=== PATIENT | female | born 1945 | race Caucasian/White ===

== ENCOUNTER → 2024-01-04 06:32 | Day surgery (SDC) | payer OTHER, SELFPAY | LOC: GI 06:32 | PROVIDERS: ATTENDING PHYSICIAN Internal Medicine Gastroenterology | DX: K62.5 Hemorrhage of anus and rectum (principal); K57.30 Diverticulosis of large intestine without perforation or abscess without bleeding; K64.8 Other hemorrhoids; K51.211 Ulcerative (chronic) proctitis with rectal bleeding; K63.89 Other specified diseases of intestine; R19.4 Change in bowel habit; K62.89 Other specified diseases of anus and rectum; K52.89 Other specified noninfective gastroenteritis and colitis | CPT/HCPCS: 45380; 88305 ==

== ENCOUNTER → 2024-06-23 10:22 | Outpatient (REF) | payer OTHER, SELFPAY | LOC: PAVMRI 10:22 | PROVIDERS: ATTENDING PHYSICIAN Psychiatry & Neurology Neurology; FAMILY PHYSICIAN Nurse Practitioner | DX: R41.89 Other symptoms and signs involving cognitive functions and awareness (principal) | CPT/HCPCS: 70553; A9575 ==

== ENCOUNTER 2024-07-28 12:46 | Emergency (ER) | payer OTHER, SELFPAY ==
[2024-07-28 12:49] VITALS: BP 143/85
[2024-07-28 13:05] LABS: % Basophils 0.7 % (0-2); % Eosinophils 1.8 % (0-6); % Immature Granulocytes 0.1 % (0-0.5); % Lymphocytes 25.1 % (20.5-51.1); % Monocytes 7.8 % (1.7-9.3); % Neutrophils 64.5 % (42.2-75.2); Absolute Basophils 0.1 10^3/uL (0-0.2); Absolute Eosinophils 0.1 10^3/uL (0-0.7); Absolute Lymphocytes 1.7 10^3/uL (1.2-3.4); Absolute Monocytes 0.5 10^3/uL (0.1-0.6); Absolute Neutrophils 4.4 10^3/uL (1.4-6.5); Hematocrit 43.3 % (37.0-47.0); Hemoglobin 14.9 g/dL (12.0-16.0); Mean Corp Hgb Conc. 34.4 g/dL (33.0-37.0); Mean Corpuscular Hgb 31.1 pg (27.0-31.0); Mean Corpuscular Volume 90.4 fL (81.0-99.0); Nucleated Red Blood Cells % 0 %; Platelet Count 239 10^3/uL (130-400); Red Blood Cell Count 4.79 10^6/uL (4.20-5.40); Red Cell Dist. Width 12.9 % (11.5-14.5); White Blood Cell Count 6.8 10^3/uL (4.8-10.8)
[2024-07-28 13:18] LABS: ALT (SGPT) 25 U/L (0-35); AST (SGOT) 27 U/L (14-36); Albumin 4.7 g/dl (3.5-5.0); Alkaline Phosphatase 113 U/L (38-126); Blood Urea Nitrogen 20 mg/dl (7-17); Calcium 9.7 mg/dl (8.4-10.2); Carbon Dioxide 25 mmol/L (22-30); Chloride 102 mmol/L (98-107); Glucose 108 mg/dl (70-99); Lipase 115 U/L (23-300); Potassium 4.2 mmol/L (3.5-5.1); Sodium 139 mmol/L (135-145); Total Bilirubin 1.3 mg/dl (0.2-1.3); Total Protein 7.6 g/dl (6.3-8.2); eGFR > 60.00
--- NOTE | 2024-07-28 13:52 | ED.GENMED ---
History of Present Illness
General
Chief Complaint: Abdominal Symptoms
Source: patient
Time Seen by Provider: 07/28/24 12:50
History of Present Illness
History of Present Illness:
28-year-old female presents to the emergency room for evaluation of intermittent vomiting, difficulty. Patient denies abdominal pain at this time. Symptoms seem to coincide with an increase of her dementia medication. No constipation. Occasional
diarrhea. When patient vomits she brings up 'clear liquid'.
Past History
Past History
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
ED Past Surgical History: Gynecological (Hysterectomy)
Social History
Tobacco: Former smoker
Alcohol: None
Personal:
Living: alone
Phy Exam
Physical Exam
Physical Exam:
General: Awake, Alert, Oriented X3. No acute distress.
Vitals: unremarkable
Head: Atraumatic
Eyes: Pupils equal, EOMI
Throat: Airway intact, no exudates
Neck: Trachea midline
Lungs: Clear and equal b/l
Heart: Regular rate, no murmurs
Abd: Soft, Nontender, No pulsatile mass
Neuro: Nonfocal
Skin: Warm, dry, no rash
Extremities: pulses equal b/l, no edema
Course
Orders/Labs/Results
Orders:
Orders
07/28/24 12:55
Complete Blood Count/With Diff Urgent
Comprehensive Metabolic Panel Urgent
Lipase Urgent
07/28/24 13:51
Obstruct Series W/PA Chest [CR Obstruct Series W/pa Chest] Urgent
Comment:
Reason For Exam: vomiting
07/28/24 13:58
COVID-19 Antigen Urgent
Source: Nasal Swab
Urine Culture Reflexed from UA [Urinalysis Reflex To Culture] Urgent
Date Specimen was Collected: 07/28/24
Time Specimen was Collected: 13:41
Urine Microscopic Reflex Cult Urgent
Urine Culture Urgent
KEYSHA Source: U
Specimen Description:
Date Specimen was Collected: 07/28/24
Time Specimen was Collected: 13:41
07/28/24 15:28
Cephalexin Monohydrate [Keflex] 500 mg PO NOW STA
Abnormal Lab Results
07/28/24 07/28/24
12:55 13:58
MCH 31.1 H pg
(27.0-31.0)
BUN 20 H mg/dl
(7-17)
Glucose 108 H mg/dl
(70-99)
Urine Ketones Trace A
(Negative)
Ur Occult Blood Reflex Trace A
(Negative)
Urine Nitrite (Reflex) Positive A
(Negative)
Leukocyte Esterase Rfl 2+ A
(Negative)
Urine RBC 3-6 A /HPF
(0-2)
Urine WBC (Reflex) 80-90 A /HPF
(0-5)
Urine Bacteria (Reflex) Many A
(Negative)
07/28/24 12:55
07/28/24 12:55
Vital Signs
Initial and Last Documented VS:
Initial Vital Signs
Temp Pulse Resp BP Pulse Ox
97.6 F 60 18 143/85 98
07/28/24 12:49 07/28/24 12:49 07/28/24 12:49 07/28/24 12:49 07/28/24 12:49
Last Documented Vital Signs
Temp Pulse Resp BP Pulse Ox
97.6 F 64 18 140/84 97
07/28/24 12:49 07/28/24 14:54 07/28/24 14:54 07/28/24 14:54 07/28/24 14:54
MDM/Problems Addressed
Differential Diagnosis Includes:
sbo, uti, dysphagia, electrolyte abn
MDM/Problems Addressed:
Patient presents with intermittent gagging and vomiting. She is hemodynamically stable and afebrile. Physical exam is unrevealing. Testing shows evidence of a urinary tract infection. Will cover with cephalexin. Obstruction series shows a
nonspecific gas pattern. Suspect patient will feel better and improve with antibiotics. Follow-up primary care provider in a few days to make sure she is in fact improving.
*Radiology
Radiology exam reviewed: preliminary read by ED provider (Nonspecific gas pattern noted on my review of the patient's obstruction series)
*Pulse Oximetry
Patient hypoxic: no
*Critical Care Note
Total Time (30-74mins, 75-104mins- exclusive of procedures): Not Applicable
ED Attending Note
-
Portions of this chart may have been created with voice recognition software.� Occasional wrong word or��sound alike� substitutions may have occurred due to the inherent limitations of voice recognition software.
Discharge Plan
Departure
Patient Disposition: Home (Routine Discharge)
Date of Disposition: 07/28/24
Time of Disposition: 15:26
Patient with high blood pressure during this ER visit?: Yes
Condition: Good
Discharge Problem:
Acute UTI, Nausea & vomiting
Instructions: Nausea and Vomiting, Adult (DC), Urinary Tract Infection, Adult ED
Prescriptions:
New
cephalexin 500 mg capsule
500 mg PO BID 7 Days Qty: 14 0RF
Referrals:
UNKNOWN - PT DOES,NOT KNOW [Family Provider] -
Interventions
Interventions:
*General Assessment Last Done: 07/28/24 12:49
ED- Fall Risk Assessment Last Done: 07/28/24 12:53
*Nursing Disposition Last Done: 07/28/24 15:35
GS-Jzfxvq-Yqehisyuke Assessment Last Done: 07/28/24 12:53
Discharge Date and Time
Discharge Date/Time: 07/28/24 16:37
Print Language: NIUEAN
[2024-07-28 14:15] LABS: Urine Albumin Negative (Neg - Trace); Urine Bilirubin Negative (Negative); Urine Character Clear (Clear); Urine Color Yellow; Urine Glucose Negative (Negative); Urine Ketone Trace (Negative); Urine Leukocyte 2+ (Negative); Urine Nitrite Positive (Negative); Urine Occult Blood Trace (Negative); Urine Specific Gravity 1.015 (<1.030); Urine Urobilinogen Negative (Neg - 1+)
[2024-07-28 14:39] LABS: Urine Mucus Few; Urine Squamous Cell >30 /LPF (Few)
[2024-07-28 14:41] LABS: Urine Bacteria Many (Negative); Urine White Cell 80-90 /HPF (0-5)
[2024-07-28 14:48] LABS: COVID-19 Antigen Negative (Negative)
[2024-07-28 14:54] VITALS: BP 140/84
[2024-07-28] MEDS: KEFLEX 500 MG PO (16:02)
== END 2024-07-28 16:37 | disposition home or self-care (01) ==
LOC: EMR 12:46
PROVIDERS: EMERGENCY PHYSICIAN Emergency Medicine
DX: N39.0 Urinary tract infection, site not specified (principal); R11.2 Nausea with vomiting, unspecified; Z87.891 Personal history of nicotine dependence; R03.0 Elevated blood-pressure reading, without diagnosis of hypertension; Z11.52 Encounter for screening for COVID-19
CPT/HCPCS: 99284; 74022; 80053; 81003; 81015; 83690; 85025; 87077; 87086; 87186; 87811

== ENCOUNTER 2024-07-31 13:56 | Emergency (ER) | payer OTHER, SELFPAY ==
[2024-07-31 14:02] VITALS: BP 124/76
--- NOTE | 2024-07-31 14:32 | ED.GENMED ---
History of Present Illness
General
Chief Complaint: Abdominal Symptoms
Time Seen by Provider: 07/31/24 14:32
History of Present Illness
History of Present Illness:
TIME OF INITIAL ENCOUNTER: 2:40 PM
HPI: The patient presents with nausea/sensation of needing to vomit. She was here just a few days ago with similar symptoms. Her daughter called the ambulance for further evaluation as symptoms have been ongoing/possibly worsening. Patient feels
there is an anxiety component.
EXAM:
GENERAL: Well appearing in no distress
HEENT: Moist oral mucosa
CARDIOVASCULAR: No murmurs, normal heart rate, regular rhythm, No chest wall tenderness
PULMONARY: No respiratory distress, breath sounds are clear and equal
ABDOMEN: Soft with no peritoneal signs, some mild diffuse abdominal tenderness
NEUROLOGIC: Fair strength all extremities, no coordination deficits
PSYCHIATRIC: Appropriate mental status, somewhat limited insight and judgement
EXTREMITIES: Nontender, no edema, moves all extremities equally
SKIN: No rash, no lesions
NUMBER AND COMPLEXITY OF PROBLEMS ADDRESSED AT THE ENCOUNTER
� Chronic conditions affecting care: Mild cognitive impairment, overactive bladder, ulcerative proctitis, anxiety/depression
� Acute Exacerbation and/or Progression of Chronic Illness: This is an acute problem
� Differential Diagnosis includes: Anxiety, nonspecific nausea, gastroenteritis, bowel obstruction, biliary colic, pancreatitis
AMOUNT AND/OR COMPLEXITY OF DATA TO BE REVIEWED AND ANALYZED
� I performed an independent evaluation of and my interpretation is:
EKG:
CT:
X-rays:
Laboratory Studies: White count normal at 6.2, hemoglobin normal, chemistries unremarkable, urinalysis shows less than 2 white cells per high-power field and overall appears much improved compared to prior. 1+ ketones noted.
Other:
� Review of other/old records: I reviewed records, the patient was seen here 3 days ago and had a normal white count, normal hemoglobin, normal LFTs,, normal lipase and had a abdominal series which was unremarkable.
� Clinical information was obtained by an independent historian: I spoke to the daughter at 3:20 PM. She is concerned about ongoing UTI.
� Prescriptions/Medications Considered but not given: Considered Zofran however the patient states that she no longer has nausea. They declined IV saline.
� Further testing considered but not performed: Considered CT imaging�see below
RISK OF COMPLICATIONS AND/OR MORBIDITY OR MORTALITY OF PATIENT MANAGEMENT
� Social determinants of health affecting care: Lives at home
� Discussion with other providers:
� Escalation of care including admission/observation vs risk of discharge considered: Patient comes back again 3 days after having unremarkable ED workup with unremarkable x-ray. Will obtain CT imaging given patient's age with
ongoing symptoms.
ANY OTHER UPDATES:
3:30 PM: I have asked nurse to obtain a cath urine specimen. Recent records show E. coli. Today's cath urinalysis shows much less concern for UTI. There is ketones noted and she was given IV fluids.
4:24 PM: I reassessed the patient, we had originally planned to do CT imaging however based on the normal labs and near complete resolution of patient's symptoms, daughter wants no further testing done and she wants to just take her home. We talked
about the possibly of Zofran. There is no tenderness on repeat examination prior to discharge
Past History
Past History
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
ED Past Surgical History: Gynecological (Hysterectomy)
Social History
Tobacco: Former smoker
Alcohol: None
Personal:
Living: alone
Phy Exam
Physical Exam
Physical Exam:
See HPI
Course
Orders/Labs/Results
Orders:
Orders
07/31/24 14:54
CT Abd/pelvis W Iv Cont Urgent
Comment:
Reason For Exam: worsening N/V; pain
07/31/24 15:03
Complete Blood Count/With Diff Urgent
07/31/24 15:14
Straight cath- Treatment ONCE
07/31/24 15:20
Comprehensive Metabolic Panel Urgent
Lipase Urgent
UA Reflex to Culture [Urinalysis Reflex To Culture] Urgent
Date Specimen was Collected: 07/31/24
Time Specimen was Collected: 15:13
Urine Microscopic Reflex Cult Urgent
07/31/24 15:34
0.9% Sodium Chloride 1000 ml [Nss] 1,000 ml IV BOLUS
Abnormal Lab Results
07/31/24
15:20
BUN 21 H mg/dl
(7-17)
Glucose 100 H mg/dl
(70-99)
Urine Ketones 1+ A
(Negative)
Ur Occult Blood Reflex Trace A
(Negative)
Leukocyte Esterase Rfl Trace A
(Negative)
Urine Bacteria (Reflex) Few A
(Negative)
07/31/24 15:03
07/31/24 15:20
Vital Signs
Initial and Last Documented VS:
Initial Vital Signs
Temp Pulse Resp BP Pulse Ox
97.8 F 74 16 124/76 99
07/31/24 14:02 07/31/24 14:02 07/31/24 14:02 07/31/24 14:02 07/31/24 14:02
Last Documented Vital Signs
Temp Pulse Resp BP Pulse Ox
97.8 F 74 20 124/76 99
07/31/24 14:02 07/31/24 14:02 07/31/24 15:27 07/31/24 14:02 07/31/24 15:09
*Critical Care Note
Total Time (30-74mins, 75-104mins- exclusive of procedures): Not Applicable
ED Attending Note
-
Portions of this chart may have been created with voice recognition software.� Occasional wrong word or��sound alike� substitutions may have occurred due to the inherent limitations of voice recognition software.
Discharge Plan
Departure
Patient Disposition: Home (Routine Discharge)
Date of Disposition: 07/31/24
Time of Disposition: 16:22
Patient with high blood pressure during this ER visit?: Yes
Discharge Problem:
Nausea
Instructions: Nausea and Vomiting, Adult (DC)
Prescriptions:
No Action
cephalexin 500 mg capsule
500 mg PO BID 7 Days Qty: 14 0RF
Referrals:
UNKNOWN - PT DOES,NOT KNOW [Family Provider] -
Activity Restrictions/Additional Instructions:
The white blood cell count is normal, liver, kidney, pancreas tests are all normal, based on the urinalysis there is no clear sign of urinary tract infection at this time based on the catheterized urine specimen. Return here if worse or other
concerns. Consider taking something ewnv-bkx-[id number] like Pepcid and/or omeprazole to help with stomach acid. Follow with your primary care doctor
Interventions
Interventions:
*Risk Screen - Suicide Last Done: 07/31/24 14:02
*General Assessment Last Done: 07/31/24 14:02
*Neglect/Abuse Screening Last Done: 07/31/24 14:02
ED- Fall Risk Assessment Last Done: 07/31/24 15:09
*ED COVID-19 Vaccine History Last Done: 07/31/24 14:02
FY-Paiokc-Piehftwgzt Assessment Last Done: 07/31/24 14:02
Discharge Date and Time
Print Language: GRENADIAN
[2024-07-31 15:17] LABS: % Basophils 0.7 % (0-2); % Eosinophils 1.8 % (0-6); % Immature Granulocytes 0.2 % (0-0.5); % Lymphocytes 31.7 % (20.5-51.1); % Monocytes 8.3 % (1.7-9.3); % Neutrophils 57.3 % (42.2-75.2); Absolute Eosinophils 0.1 10^3/uL (0-0.7); Absolute Monocytes 0.5 10^3/uL (0.1-0.6); Absolute Neutrophils 3.5 10^3/uL (1.4-6.5); Hematocrit 40.4 % (37.0-47.0); Hemoglobin 13.7 g/dL (12.0-16.0); Mean Corp Hgb Conc. 33.9 g/dL (33.0-37.0); Mean Corpuscular Hgb 30.7 pg (27.0-31.0); Mean Corpuscular Volume 90.6 fL (81.0-99.0); Nucleated Red Blood Cells % 0 %; Platelet Count 215 10^3/uL (130-400); Red Blood Cell Count 4.46 10^6/uL (4.20-5.40); Red Cell Dist. Width 12.9 % (11.5-14.5); White Blood Cell Count 6.2 10^3/uL (4.8-10.8)
[2024-07-31 15:45] LABS: Urine Albumin Trace (Neg - Trace); Urine Bilirubin Negative (Negative); Urine Character Clear (Clear); Urine Color Yellow; Urine Glucose Negative (Negative); Urine Ketone 1+ (Negative); Urine Leukocyte Trace (Negative); Urine Nitrite Negative (Negative); Urine Occult Blood Trace (Negative); Urine Urobilinogen Negative (Neg - 1+)
[2024-07-31 15:52] LABS: Urine Bacteria Few (Negative); Urine Red Blood Cell 0-2 /HPF (0-2); Urine Squamous Cell 0-2 /LPF (Few); Urine White Cell 0-2 /HPF (0-5)
[2024-07-31 15:57] LABS: ALT (SGPT) 22 U/L (0-35); AST (SGOT) 24 U/L (14-36); Albumin 3.9 g/dl (3.5-5.0); Alkaline Phosphatase 90 U/L (38-126); Blood Urea Nitrogen 21 mg/dl (7-17); Calcium 9.3 mg/dl (8.4-10.2); Carbon Dioxide 26 mmol/L (22-30); Chloride 104 mmol/L (98-107); Glucose 100 mg/dl (70-99); Lipase 123 U/L (23-300); Potassium 4.2 mmol/L (3.5-5.1); Sodium 141 mmol/L (135-145); Total Protein 6.6 g/dl (6.3-8.2); eGFR > 60.00
[2024-07-31 16:46] VITALS: BP 119/78
== END 2024-07-31 16:47 | disposition home or self-care (01) ==
LOC: EMR 13:56
PROVIDERS: EMERGENCY PHYSICIAN Emergency Medicine
DX: R11.0 Nausea (principal); F41.9 Anxiety disorder, unspecified; Z86.73 Personal history of transient ischemic attack (TIA), and cerebral infarction without residual deficits; Z87.891 Personal history of nicotine dependence; Z90.710 Acquired absence of both cervix and uterus
CPT/HCPCS: 99283; 80053; 81003; 81015; 83690; 85025

== ENCOUNTER 2024-08-02 11:33 | Emergency (ER) | payer OTHER, SELFPAY ==
[2024-08-02 11:39] VITALS: BP 155/76; BMI 26.5
[2024-08-02 11:59] LABS: % Basophils 0.6 % (0-2); % Eosinophils 1.1 % (0-6); % Immature Granulocytes 0.2 % (0-0.5); % Lymphocytes 27.2 % (20.5-51.1); % Monocytes 6.6 % (1.7-9.3); % Neutrophils 64.3 % (42.2-75.2); Absolute Eosinophils 0.1 10^3/uL (0-0.7); Absolute Lymphocytes 1.7 10^3/uL (1.2-3.4); Absolute Monocytes 0.4 10^3/uL (0.1-0.6); Absolute Neutrophils 4.1 10^3/uL (1.4-6.5); Hematocrit 43.4 % (37.0-47.0); Hemoglobin 14.8 g/dL (12.0-16.0); Mean Corp Hgb Conc. 34.1 g/dL (33.0-37.0); Mean Corpuscular Hgb 31.8 pg (27.0-31.0); Mean Corpuscular Volume 93.1 fL (81.0-99.0); Mean Platelet Volume 10.2 fL (7.4-10.4); Nucleated Red Blood Cells % 0 %; Platelet Count 212 10^3/uL (130-400); Red Blood Cell Count 4.66 10^6/uL (4.20-5.40); Red Cell Dist. Width 12.8 % (11.5-14.5); White Blood Cell Count 6.4 10^3/uL (4.8-10.8)
[2024-08-02 12:00] VITALS: BP 103/68
[2024-08-02 12:06] VITALS: BP 163/83
[2024-08-02 12:06] LABS: Urine Albumin Trace (Neg - Trace); Urine Bilirubin Negative (Negative); Urine Character Clear (Clear); Urine Color Yellow; Urine Glucose Negative (Negative); Urine Ketone 1+ (Negative); Urine Leukocyte Negative (Negative); Urine Nitrite Negative (Negative); Urine Occult Blood Negative (Negative); Urine Specific Gravity 1.015 (<1.030); Urine Urobilinogen Negative (Neg - 1+)
[2024-08-02 12:14] LABS: ALT (SGPT) 22 U/L (0-35); AST (SGOT) 24 U/L (14-36); Albumin 4.3 g/dl (3.5-5.0); Alkaline Phosphatase 99 U/L (38-126); Blood Urea Nitrogen 19 mg/dl (7-17); Calcium 9.6 mg/dl (8.4-10.2); Carbon Dioxide 26 mmol/L (22-30); Chloride 103 mmol/L (98-107); Estimated Creatinine Clearance 53 ml/min; Glucose 126 mg/dl (70-99); Sodium 139 mmol/L (135-145); Total Protein 7.2 g/dl (6.3-8.2); eGFR > 60.00
--- NOTE | 2024-08-02 12:32 | ED.GENMED ---
History of Present Illness
General
Chief Complaint: Weakness
Source: patient and family (daughter at bedside, aunt in [place] on speaker phone)
Exam Limitations: dementia
Time Seen by Provider: 08/02/24 11:54
Nursing documentation reviewed up to this point in time: agreed with
History of Present Illness
History of Present Illness:
79 yo female here for 3rd time in past week for weakness, not eating, questionable whether she is taking her medications properly, nausea and retching in the mornings.
Daughter called EMS after speaking with pt this a.m..
Pt states 'I think I have some kind of dementia.' Pt denies H/A, vision changes, CP, SOB, Abd pain, states she's nauseous only in the mornings, family think she tries to take all her medications in the morning on empty stomach causing the gagging
and nausea. Denies burning with urination, wears depends and a pad, does have urgency but this is not new. Denies f/c/d/c.
Pt states 'I have depression and real high anxiety.'
Daughter Tammy at bedside states 'she can't go home.' She lives alone in her home.
Past History
Past History
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
ED Past Surgical History: Gynecological (Hysterectomy)
Social History
Tobacco: Former smoker
Alcohol: None
Personal:
Living: alone
Review of Systems
Review of Systems
Allergies reviewed?: Yes
All Other Systems: ROS reviewed and negative except as documented in HPI and ROS
Constitutional: Reports fatigue; Denies fever
Respiratory: Denies trouble breathing
Cardiac: Denies chest pain or syncope
ABD/GI: Reports nausea, vomiting and anorexia; Denies abdominal pain or diarrhea
: Reports incontinence and urgency; Denies dysuria, frequency or difficulty voiding
Musculoskeletal: Reports no symptoms
Skin: Reports no symptoms
Neurological: Reports no symptoms
Psychiatric: Reports depression and anxiety
Phy Exam
Physical Exam
Physical Exam:
GENERAL: No acute distress. A&Ox3.
CONSTITUTIONAL: Afebrile.
EYES: PERRL, conjunctivae normal
Neck: Supple
ENMT: moist mucus membranes, Pharynx nl
RESPIRATORY: Regular respirations, nonlabored, lungs clear.
CARDIOVASCULAR: Regular rate and rhythm, no murmurs, no rubs.
GI: Soft, nontender, normal BS
MUSCULOSKELETAL: Moves with ease. Well perfused.
SKIN: Warm, dry, pink
PSYCH: Depressed mood and affect. Well kept, interactive and appropriate
NEUROLOGIC: Awake, alert and oriented. CN 2-12 intact. Strength equal throughout. No focal neurological deficits. Ambulates independently, mildly unstable.
Course
Orders/Labs/Results
Orders:
Orders
08/02/24 11:37
Electrocardiogram (*1) Urgent
Reason for Study: Fatigue / Weakness
EKG- Treatment ONCE
08/02/24 11:51
Complete Blood Count/With Diff Urgent
Comprehensive Metabolic Panel Urgent
Urinalysis Reflex To Culture Urgent
Date Specimen was Collected: 08/02/24
Time Specimen was Collected: 11:50
Abnormal Lab Results
08/02/24
11:51
MCH 31.8 H pg
(27.0-31.0)
BUN 19 H mg/dl
(7-17)
Glucose 126 H mg/dl
(70-99)
Urine Ketones 1+ A
(Negative)
08/02/24 11:51
08/02/24 11:51
Vital Signs
Initial and Last Documented VS:
Initial Vital Signs
Temp Pulse Resp BP Pulse Ox
97.6 F 66 16 155/76 98
08/02/24 11:39 08/02/24 11:39 08/02/24 11:39 08/02/24 11:39 08/02/24 11:39
Last Documented Vital Signs
Temp Pulse Resp BP Pulse Ox
97.6 F 56 18 131/58 93
08/02/24 11:39 08/02/24 13:00 08/02/24 13:00 08/02/24 13:00 08/02/24 13:00
MDM/Problems Addressed
Differential Diagnosis Includes:
dementia, depression/anxiety
MDM/Problems Addressed:
79 yo female here for 3rd time in past week for weakness, not eating, questionable whether she is taking her medications properly, nausea and retching in the mornings.
Daughter called EMS after speaking with pt this a.m..
Pt states 'I think I have some kind of dementia.' Pt denies H/A, vision changes, CP, SOB, Abd pain, states she's nauseous only in the mornings, family think she tries to take all her medications in the morning on empty stomach causing the gagging
and nausea. Denies burning with urination, wears depends and a pad, does have urgency but this is not new. Denies f/c/d/c.
Pt states 'I have depression and real high anxiety.'
Daughter Tammy at bedside states 'she can't go home.' She lives alone in her home.
CBC, CMP, UA unremarkable
Pt OOB and ambulating independently, mildly tremulous but not unstable.
Patient is cleared medically
Case management in to speak with daughter and aunt on speaker phone. All agree that she cannot go home, her grandson lives with her part of the time but most of the time there is no one there with her.
Case management is working on getting home health care starting in 2 days (Sunday) until the family can find a place with higher level of care for patient. Case management provided the family with a list of places they can call Sunday
Daughter states pt can stay with her until then.
*Critical Care Note
Total Time (30-74mins, 75-104mins- exclusive of procedures): Not Applicable
ED Attending Note
-
Portions of this chart may have been created with voice recognition software.� Occasional wrong word or��sound alike� substitutions may have occurred due to the inherent limitations of voice recognition software.
Discharge Plan
Departure
Patient Disposition: Home (Routine Discharge)
Date of Disposition: 08/02/24
Time of Disposition: 12:40
Patient with high blood pressure during this ER visit?: No
Condition: Fair
Discharge Problem:
Dementia, Anxiety, Depression
Instructions: Depression in adults, Dementia ED
Prescriptions:
New
ondansetron 4 mg tablet,disintegrating
4 mg PO Q8H PRN (Reason: nausea and vomiting) 5 Days Qty: 14 0RF
No Action
cephalexin 500 mg capsule
500 mg PO BID 7 Days Qty: 14 0RF
atorvastatin [Lipitor] 40 mg Tablet
40 mg PO QPM
oxybutynin chloride 10 mg Tablet Extended Release 24hr
10 mg PO DAILY
aspirin 81 mg Tablet,Delayed Release (Dr/Ec)
81 mg PO DAILY
buspirone 10 mg Tablet
10 mg PO BID
escitalopram oxalate [Lexapro] 20 mg Tablet
20 mg PO DAILY
valsartan 40 mg Tablet
40 mg PO DAILY
donepezil 23 mg Tablet
23 mg PO HS
Activity Restrictions/Additional Instructions:
As we discussed, have Ms. Newberry stay with someone this weekend, [facility] is arranging some type of home care for next week.
She is providing a list of facilities you can call to make admission or longer term care arrangements.
Her lab work including urinalysis show nothing worrisome.
I sent a prescription to your pharmacy for Zofran to use if needed for nausea/vomiting.
Make appointment SAWYER with her new primary care provider to be sure she can get her medications refilled when needed.
Interventions
Interventions:
*Risk Screen - Suicide Last Done: 08/02/24 11:39
*General Assessment Last Done: 08/02/24 11:39
*Neglect/Abuse Screening Last Done: 08/02/24 11:39
ED- Fall Risk Assessment Last Done: 08/02/24 11:39
*ED COVID-19 Vaccine History Last Done: 08/02/24 11:39
*Nursing Disposition Last Done: 08/02/24 13:48
ED- Cardiac Assessment Last Done: 08/02/24 11:39
ED- Neurological Assessment Last Done: 08/02/24 11:39
ED- Pulmonary Assessment Last Done: 08/02/24 11:39
Discharge Date and Time
Discharge Date/Time: 08/02/24 13:48
Print Language: POLISH
--- NOTE | 2024-08-02 12:59 | PHANOTE ---
med rec note- patient daughter brought in patient drug bottles, most a duplicates and full, unable to confirm with either daughter or patient when medication where taking last
[2024-08-02 13:00] VITALS: BP 131/58
--- NOTE | 2024-08-02 13:25 | CM ---
CM consult for PC facilities for patient. Daughter explained mom has not been taking her meds the way she should. She also said she was looking into getting her mom to a community center so she could socialize more. DIESEL TECH[employer]OLOGY INSTRUCTOR also in room. While daughter
explained what symptoms were, DIESEL TECHNOLOGY INSTRUCTOR educated daughter that these were signs of depression, as they had discussed.
CM reiterated that it sounded like patient was going through depression, and the socialization would help. CM also educated daughter on how important it was that her mother received her depression pill each day.
Daughter had her aunt on speaker phone as well. The aunt shared that she did not feel that it was safe for Becca Caro to be living in her home any more, and she may need to 'never return back'. CM explained what Personal Care was. Patient's daughter
and daughter's aunt were in agreement of this.
CM printed out a list of PCs/AL facilites in the area and handed it to daughter. Referrals to [facility] and [facility].
== END 2024-08-02 13:48 | disposition home or self-care (01) ==
LOC: EMR 11:33
PROVIDERS: Student in an Organized Health Care Education/Training Program; EMERGENCY PHYSICIAN Emergency Medicine; FAMILY PHYSICIAN Family Medicine
DX: F03.90 Unspecified dementia, unspecified severity, without behavioral disturbance, psychotic disturbance, mood disturbance, and anxiety (principal); F41.9 Anxiety disorder, unspecified; F32.A Depression, unspecified; Z86.73 Personal history of transient ischemic attack (TIA), and cerebral infarction without residual deficits; Z87.891 Personal history of nicotine dependence; Z79.899 Other long term (current) drug therapy
CPT/HCPCS: 99284; 80053; 81003; 85025; 93005

== ENCOUNTER 2024-08-06 12:14 | Inpatient (IN) | payer OTHER, SELFPAY ==
[2024-08-04 17:23] VITALS: BP 111/70
[2024-08-04 17:30] VITALS: BMI 25.4
[2024-08-04 17:47] LABS: % Basophils 0.6 % (0-2); % Eosinophils 0.6 % (0-6); % Immature Granulocytes 0.2 % (0-0.5); % Lymphocytes 17.2 % (20.5-51.1); % Monocytes 5.3 % (1.7-9.3); % Neutrophils 76.1 % (42.2-75.2); Absolute Basophils 0.1 10^3/uL (0-0.2); Absolute Eosinophils 0.1 10^3/uL (0-0.7); Absolute Lymphocytes 1.4 10^3/uL (1.2-3.4); Absolute Monocytes 0.4 10^3/uL (0.1-0.6); Absolute Neutrophils 6.1 10^3/uL (1.4-6.5); Hematocrit 40.8 % (37.0-47.0); Hemoglobin 13.8 g/dL (12.0-16.0); Mean Corp Hgb Conc. 33.8 g/dL (33.0-37.0); Mean Corpuscular Volume 91.7 fL (81.0-99.0); Nucleated Red Blood Cells % 0 %; Platelet Count 199 10^3/uL (130-400); Red Blood Cell Count 4.45 10^6/uL (4.20-5.40); Red Cell Dist. Width 12.9 % (11.5-14.5); White Blood Cell Count 8.1 10^3/uL (4.8-10.8)
--- NOTE | 2024-08-04 17:49 | ED.GENMED ---
History of Present Illness
General
Chief Complaint: Seizure
Time Seen by Provider: 08/04/24 17:49
History of Present Illness
History of Present Illness:
TIME OF INITIAL ENCOUNTER: 5:50 PM
HPI:
The patient was seen here in the Emergency Department 07/28/2024 and was felt to have a urinary tract infection�was placed on Keflex and at that time also had an obstruction series which was unremarkable. I saw this patient 07/31/2024 and had nausea
and at that time had unremarkable CBC and chemistries and urinalysis was much improved. Urine culture from 07/28/2024 was pansensitive. The patient was seen in the emergency department 08/02/2024 related to weakness and not eating and was also
complaining of nausea in the mornings as well as sensation of depression. Care management was working on getting home health care. I spoke to the daughter at 6:25 PM he tells me that earlier today around 4:30 PM, the grandson found her
unresponsive shake. Daughter states that she had an episode of seizure activity about 15 years ago but since then was taken off of seizure medications.
EXAM:
GENERAL: Well appearing in no distress
HEENT: Moist oral mucosa
CARDIOVASCULAR: No murmurs, normal heart rate, regular rhythm, No chest wall tenderness
PULMONARY: No respiratory distress, breath sounds are clear and equal
ABDOMEN: Soft with no peritoneal signs, no tenderness
NEUROLOGIC: Excellent strength all extremities, no coordination deficits
PSYCHIATRIC: Mild cognitive deficits but she is able to name the month, knows where she is and has a general idea as to why she is here
EXTREMITIES: Nontender, no edema, moves all extremities equally
SKIN: No rash, no lesions
NUMBER AND COMPLEXITY OF PROBLEMS ADDRESSED AT THE ENCOUNTER
� Chronic conditions affecting care: Has had CVA in the past and had seizure in the remote past
� Acute Exacerbation and/or Progression of Chronic Illness: This is an acute problem
� Differential Diagnosis includes: Seizure, dementia, delirium, failure to thrive, recent urinalyses have improved, medication related
AMOUNT AND/OR COMPLEXITY OF DATA TO BE REVIEWED AND ANALYZED
� I performed an independent evaluation of and my interpretation is:
EKG: Sinus 60, normal axis, nonspecific ST abnormality, artifact noted
CT: Brain CT shows no acute abnormality
X-rays:
Laboratory Studies: CBC and chemistries unremarkable except for glucose of 223, B12, folate, TSH pending
Other:
� Review of other/old records: I reviewed brain MRI from 06/23/2024 which at that time showed no acute abnormality
� Clinical information was obtained by an independent historian: Spoke to the daughter and son-in-law at bedside
� Prescriptions/Medications Considered but not given:
� Further testing considered but not performed:
RISK OF COMPLICATIONS AND/OR MORBIDITY OR MORTALITY OF PATIENT MANAGEMENT
� Social determinants of health affecting care:
� Discussion with other providers: I discussed case with Dr. Jarvis who did recommend additional blood work.
� Escalation of care including admission/observation vs risk of discharge considered: As this is the patient's fourth visit to the ED now having a period of unresponsive/shaking episode earlier, I have asked hospitalist to keep
the patient for further evaluation.
ANY OTHER UPDATES:
7 PM: No significant change in patient's clinical condition and there is been no further seizure activities here
Past History
Past History
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
ED Past Surgical History: Gynecological (Hysterectomy)
Social History
Tobacco: Former smoker
Alcohol: None
Personal:
Living: alone
Phy Exam
Physical Exam
Physical Exam:
See HPI
Course
Orders/Labs/Results
Orders:
Orders
08/04/24 17:24
Electrocardiogram (*1) Urgent
Reason for Study: Syncope
EKG- Treatment ONCE
08/04/24 17:36
Complete Blood Count/With Diff Urgent
Comprehensive Metabolic Panel Urgent
Erythrocyte Sed Rate Urgent
Comment: ADD ON
Folate Urgent
Comment: ADD ON
TSH Reflex To Free T4 Urgent
Comment: ADD ON
Vitamin B12 Urgent
Comment: ADD ON
08/04/24 18:01
CT Head W/o Iv Contrast Urgent
Comment:
Reason For Exam: seizure?
08/04/24 18:03
0.9% Sodium Chloride 1000 ml [Nss] 1,000 ml IV BOLUS
08/04/24 18:30
Add On- LAB Urgent
Tests Added?: B12, folate, TSH Reflex fT4
Electrocardiogram (*1) Urgent
Reason for Study: Syncope
EKG- Treatment ONCE
08/04/24 18:31
Add On- LAB Urgent
Tests Added?: esr
Abnormal Lab Results
08/04/24
17:36
Neutrophils % 76.1 H %
(42.2-75.2)
Lymphocytes % 17.2 L %
(20.5-51.1)
BUN 33 H mg/dl
(7-17)
Glucose 223 H mg/dl
(70-99)
Total Bilirubin 1.4 H mg/dl
(0.2-1.3)
08/04/24 17:36
08/04/24 17:36
Vital Signs
Initial and Last Documented VS:
Initial Vital Signs
Temp Pulse Resp BP Pulse Ox
98.0 F 62 14 111/70 96
08/04/24 17:23 08/04/24 17:23 08/04/24 17:23 08/04/24 17:23 08/04/24 17:23
Last Documented Vital Signs
Temp Pulse Resp BP Pulse Ox
98.0 F 67 15 111/70 95
08/04/24 17:23 08/04/24 17:32 08/04/24 17:32 08/04/24 17:23 08/04/24 17:32
*Critical Care Note
Total Time (30-74mins, 75-104mins- exclusive of procedures): Not Applicable
ED Attending Note
-
Portions of this chart may have been created with voice recognition software.� Occasional wrong word or��sound alike� substitutions may have occurred due to the inherent limitations of voice recognition software.
Discharge Plan
Departure
Patient Disposition: Admit
Date of Disposition: 08/04/24
Time of Disposition: 19:02
Presentation/result/management discussed w/ accepting MD/DO: Hospitalist
Discharge Problem:
Unresponsive episode
Prescriptions:
No Action
cephalexin 500 mg capsule
500 mg PO BID 7 Days Qty: 14 0RF
atorvastatin [Lipitor] 40 mg Tablet
40 mg PO QPM
oxybutynin chloride 10 mg Tablet Extended Release 24hr
10 mg PO DAILY
aspirin 81 mg Tablet,Delayed Release (Dr/Ec)
81 mg PO DAILY
buspirone 10 mg Tablet
10 mg PO BID
escitalopram oxalate [Lexapro] 20 mg Tablet
20 mg PO DAILY
valsartan 40 mg Tablet
40 mg PO DAILY
donepezil 23 mg Tablet
23 mg PO HS
ondansetron 4 mg tablet,disintegrating
4 mg PO Q8HPRN PRN (Reason: nausea and vomiting)
Referrals:
Clemencia Puga DO [Family Provider] -
Interventions
Interventions:
ED- Fall Risk Assessment Last Done: 08/04/24 17:44
ED- Cardiac Assessment Last Done: 08/04/24 17:44
ED- Neurological Assessment Last Done: 08/04/24 17:44
ED- Pulmonary Assessment Last Done: 08/04/24 17:44
Discharge Date and Time
Print Language: MALTESE
[2024-08-04 17:58] LABS: ALT (SGPT) 22 U/L (0-35); AST (SGOT) 27 U/L (14-36); Albumin 4.2 g/dl (3.5-5.0); Alkaline Phosphatase 67 U/L (38-126); Blood Urea Nitrogen 33 mg/dl (7-17); Calcium 9.2 mg/dl (8.4-10.2); Carbon Dioxide 23 mmol/L (22-30); Chloride 101 mmol/L (98-107); Estimated Creatinine Clearance 34 ml/min; Glucose 223 mg/dl (70-99); Potassium 4.2 mmol/L (3.5-5.1); Sodium 139 mmol/L (135-145); Total Bilirubin 1.4 mg/dl (0.2-1.3); Total Protein 6.9 g/dl (6.3-8.2); eGFR 56.95
[2024-08-04 18:00] VITALS: BP 121/103
[2024-08-04] MEDS: NSS 1000 IV ×2 (18:19→21:05)
[2024-08-04 19:02] LABS: Erythrocyte Sed Rate 12 mm/hour (0-20)
--- NOTE | 2024-08-04 19:29 | HPS.HSE ---
Family Physician
-
Family Physician: Clemencia Puga DO
Chief Complaint
-
Presyncope with suspected seizure
History of Present Illness
This is a 79-year-old female was past medical history of vascular dementia, old CVAs (asymptomatic), hypertension, hyperlipidemia, anxiety presenting to the emergency department with a syncopal-like episode that occurred at around 4 PM today.
Patient apparently has been coming to the ED over the last week for multiple symptoms. She was diagnosed with a UTI and was treated with cephalexin which she completed a course and is no longer symptomatic. She had had persistent nausea for which
she was placed on Zofran. Patient denies vomiting. Has been no melena. She has no hematochezia. She has reduced p.o. intake per family. She has sleeping disorder with severe insomnia and and getting up much later in the day. No known weight
loss. No known fevers or chills. Family reports prior seizure episode in the remote past on antiepileptic drugs. She is no longer on these medications. Per chart she had an EEG done last year in the setting of altered mental status the EEG was
normal. Patient appeared to be significantly dehydrated at that time. I was unable to extract the symptoms of depression fully. He was obviously anxious at the time of the interview.
The event today was weakness. Apparently after coming down she looked he will and was nauseous. The the grandson was witnessing this event said that she was unresponsive and she was lowering herself to the ground so he helped her. She was going
down to the ground. She had shaking of the hands. She was intermittently responsive with mostly unresponsive. She was breathing and she felt she had a pulse throughout this episode that lasted for about 10 minutes. By the time EMS arrived the
patient was awake and alert. There was no loss of bladder or bowel continence. There was no tongue biting. There was no postictal somnolence.
In the ED the patient was afebrile blood pressure was 117/70 with a pulse of 67 she was satting 95%. Head CT shows no acute abnormalities. ECG shows a normal sinus rhythm without any acute ST or T wave changes. CBC was unremarkable. Chemistry
panel shows no acute abnormalities.
Medical History
Past Medical History
Past Medical History: Reports CVA, Dementia, HTN, Hypercholesterolemia and Psychiatric
Past Surgical History: Reports None
Social History
Tobacco: Former Smoker
Alcohol: Occasional
Drug: None
Living: With Family
Employment: Retired
Family History
Family History: Not pertinent
Allergies / Home Medications
Allergies reflects when Allergies were last updated in [employer].
Home Medications with original date entered in [employer]
Allergy/Medication List:
Allergies
Allergy/AdvReac Type Severity Reaction Status Date / Time
acetaminophen [From Percocet] Allergy Unknown Verified 08/04/24 17:30
alendronate sodium Allergy Unknown Verified 08/04/24 17:30
meperidine Allergy Rash Verified 08/04/24 17:30
oxycodone [From Percocet] Allergy Unknown Verified 08/04/24 17:30
Sulfa (Sulfonamide Allergy Nausea / Verified 08/04/24 17:30
Antibiotics) Vomiting
Home Medications
cephalexin 500 mg capsule 500 mg PO BID 7 days #14 caps 07/28/24
aspirin 81 mg tablet,delayed release 81 mg PO DAILY 08/02/24
atorvastatin 40 mg tablet (Lipitor) 40 mg PO QPM 08/02/24
buspirone 10 mg tablet 10 mg PO BID 08/02/24
donepezil 23 mg tablet 23 mg PO HS 08/02/24
escitalopram oxalate 20 mg tablet (Lexapro) 20 mg PO DAILY 08/02/24
oxybutynin chloride 10 mg tablet,extended release 24 hr 10 mg PO DAILY 08/02/24
valsartan 40 mg tablet 40 mg PO DAILY 08/02/24
ondansetron 4 mg disintegrating tablet 4 mg PO Q8HPRN PRN nausea and vomiting 08/04/24
Review of Systems
-
History Source: Patient and Family
Constitutional: Reports Fatigue and Sleep Disturbance
EENT: Reports No Symptoms
Respiratory: Reports No Symptoms
Cardiac: Reports No Symptoms
Abdomen/GI: Reports Nausea
: Reports No Symptoms
Musculoskeletal: Reports No Symptoms
Skin: Reports No Symptoms
Neurological: Reports Weakness
Endocrine: Reports No Symptoms
Hematologic/Lymphatic: Reports No Symptoms
Psych: Reports No Symptoms
Physical Exam
Vital Signs
Vital Signs
Temp Pulse Resp BP Pulse Ox
98.0 F 62 20 121/103 93
08/04/24 17:23 08/04/24 18:15 08/04/24 18:15 08/04/24 18:00 08/04/24 18:15
Physical Exam
General: Well Nourished, No Apparent Distress, Comfortable and Conversant
HEENT: NormoCephalic, Anicteric, Atraumatic, PERRLA, [place] Conjunctivae and No Ptosis
Respiratory: Clear
Cardiac: S1/S2 and Regular Rhythm
Breast: Deferred by me
GI: Soft, Non Tender, Non Distended and Normal Bowel Sounds
Rectal: Deferred by Provider
Genito-urinary: Deferred by me
Musculoskeletal: No Clubbing, No Cyanosis and No Edema
Skin: Warm
Neuro: AO x 3, No Motor Deficits, Cranial Nerves Intact and No Sensory Deficits
Hematologic/Lymphatic: No Lymphadenopathy
Psych: Anxious
Laboratory Results
-
08/04/24 17:36
08/04/24 17:36
Laboratory Results
Total Bilirubin 1.4 mg/dl (0.2-1.3) H 08/04/24 17:36
AST 27 U/L (14-36) 08/04/24 17:36
ALT 22 U/L (0-35) 08/04/24 17:36
Alkaline Phosphatase 67 U/L (38-126) 08/04/24 17:36
Data Reviewed
-
CT Scan: Report Reviewed by me
Medical Tests (Nuc Med, Echo, EKG etc): Image Personally Visualized and interpreted
Lab Data: Labs Reviewed by me
Old Records: Reviewed
Impression/Plan
-
IMPRESSION:
79 y.o with vascular dementia, recent uti on cephalexin, anxiety and hypertension presenting to ED with a syncopal episode. Family worried about seizure. The evidence appears less like seizure without tonic/clonic activity (just arm shaking), no
uncontrolled bm or micturation, no post-ictal depression, no tongue biting. Had EEG last year which was normal. MRI in the last 2 months shows no significant abnormalities. Labs here completely normal. CT head non-acute. History of poor po
intake from persistent nausea.
PLAN:
1. Syncope - Brief episode of poor responsiveness but no loss of pulse or breathing. She appears back to baseline.
- admit to telemetry eval for arrhythmia
- dehydrated, check orthostatic vital signs
- check echo in am
- no signs of acute infection
- for question of seizure, check mri,
- checking tsh, b12 esr
- neurology consult
- iv fluids overnight
2. Nausea - No vomiting. Spitting up phlegm, mucus. No abdominal pain or distension. No regurgitation. Follow with GI
- GERD possibility versus esophageal dysmotility , will try pepcid
- monitor oral intake
3.Sleep disturbance - Patient with insomnia and daytime tiredness sleepiness likely secondary to dementia. Increased dose of donepizil w/ risk of nausea, anorexia and orthostatic side effects
- melatonin prn
4. HTN - stable
- continue valsartan for now
DVT PPX - lovenox sq
Code Status -- Full Code
[2024-08-04 19:37] LABS: TSH Reflex To Free T4 1.64 uIU/ml (0.47-4.68)
[2024-08-04 19:51] VITALS: BP 129/85
[2024-08-04 20:00] VITALS: BP 112/99
[2024-08-04 20:13] LABS: Folate 13.6 ng/ml (2.76-20); Vitamin B12 832 pg/ml (239-931)
--- NOTE | 2024-08-04 20:40 | PTCARENOTE ---
Patient arrived from ED via stretcher. Pt AAOx3, VSS. Patient ambulated into the room with assistance. No complaints of pain. Pt oriented to the room. Educated on plan of care and medications. Fall risk bracelet applied. Call su is within reach.
[2024-08-04 20:53] VITALS: BMI 26.6
[2024-08-04 21:00] VITALS: BP 126/75; BP 135/75; BP 143/73; PULSE 73; PULSE 75; PULSE 81
[2024-08-04] MEDS: BUSPAR 10 MG PO (21:05)
--- NOTE | 2024-08-04 21:30 | PTCARENOTE ---
Upon asking admission questions, pt explained to RN that she has felt depressed over the past few weeks/months. RN asked if she had any suicidal ideations or a plan at this time. Patient stated that she does not have any suicidal ideations and has
no plan. Emotional support provided. Call su is within reach.
[2024-08-04 23:42] VITALS: BP 120/61
[2024-08-05 03:55] VITALS: BP 126/65
[2024-08-05 07:30] VITALS: BP 123/67; BP 124/64; BP 130/66; PULSE 56; PULSE 60; PULSE 66
[2024-08-05 08:22] LABS: Hematocrit 39.9 % (37.0-47.0); Hemoglobin 13.3 g/dL (12.0-16.0); Mean Corp Hgb Conc. 33.3 g/dL (33.0-37.0); Mean Corpuscular Hgb 32.3 pg (27.0-31.0); Mean Corpuscular Volume 96.8 fL (81.0-99.0); Mean Platelet Volume 10.3 fL (7.4-10.4); Platelet Count 166 10^3/uL (130-400); Red Blood Cell Count 4.12 10^6/uL (4.20-5.40); White Blood Cell Count 7.2 10^3/uL (4.8-10.8)
--- NOTE | 2024-08-05 08:25 | VNURNOTE ---
Chart reviewed. Patient is current with [facility] nursing and [facility]. Will continue to follow hospital course and DC plans.
[2024-08-05] MEDS: DIOVAN 40 MG PO (08:28)
[2024-08-05] MEDS: LEXAPRO 20 MG PO (08:28)
[2024-08-05] MEDS: BUSPAR 10 MG PO ×2 (08:28→20:44)
[2024-08-05] MEDS: DITROPAN 5 MG PO ×2 (08:28→20:44)
[2024-08-05] MEDS: PEPCID 20 MG PO (08:28)
[2024-08-05] MEDS: ASPIR LOW (ENTERIC COATED) 81 MG PO (08:28)
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
[2024-08-05] MEDS: NSS 1000 IV (08:32)
[2024-08-05 08:59] LABS: Blood Urea Nitrogen 23 mg/dl (7-17); Calcium 8.5 mg/dl (8.4-10.2); Carbon Dioxide 23 mmol/L (22-30); Chloride 109 mmol/L (98-107); Estimated Creatinine Clearance 44 ml/min; Glucose 91 mg/dl (70-99); Potassium 4.1 mmol/L (3.5-5.1); Sodium 143 mmol/L (135-145); eGFR > 60.00
[2024-08-05 10:06] LABS: D-Dimer 1.64 ug/mlFEU (0.00-0.50)
[2024-08-05 10:36] VITALS: BMI 26.6
[2024-08-05 11:28] VITALS: BP 107/74
--- NOTE | 2024-08-05 11:30 | CM ---
Addendum entered by Cheng Thomas 08/05/24 11:37:
[facility] form reviewed w/ pt, not OOBS
Original Note:
Pt seen bedside. Pt appears alert and oriented during conversation, with ability to recall information
Pt lives alone in a 2 story townhouse- 7 steps to enter
Pt independent, denies DME use for daily functioning
Pt states she has been walking to the bathroom independently
Denies SNF hx
[facility] in the past
Address, point of contact and insurance verified
PCP: Dr. Clemencia Puga
Pharmacy: [facility]
PT/OT pending, will await evaluation and poss recommendations
OOBS form reviewed, pt given copy. Copy placed in chart
Plan: Home w/ no needs anticipated
--- NOTE | 2024-08-05 12:35 | W.PN.HOSP.TC ---
Today's Communication/Plan
-
see PN
Assessment / Plan
Assessment / Plan
79yo F with PMHx of anxiety, CVA, dementia, urinary urgency, HTN came to ED with concern for episode of unresponsiveness and near-syncope. Labs without significant abnormalities. As per family - patient had disrupted sleep pattern and had episode of
AMS last year with neg EEG at that time. Also concern for tremulous activity
A/P:
#Syncope, most likely 2/2 episodes of orthostatic hypotension or bradycardia
Aricept dose decreased
cobnt tele
Echo
Hydrate
PT/OT
US
Ortho VS not clearly suggestive of hypotension
Improved on IVF - also had episodes of dehydration before
TSH WNL
Brain MRI as of 06/23/24 - no acute findings, microangiopathic ischemia
#Intermittent nausea
Elevated bili
check LDH, direct bili
no abd pain at this time
CT abd
follow LFT
#Elevated ddimer
CT chest
LE US
#fasting hyperglycemia
check HgbA1c
#Essential HTN
#HLD
#Dememtia, unspecified
cont home meds
avoid hypotension
Decrease Aricept
DVT ppx lovenox
Full code
I have spent at least 59min reviewing chart, test results, communication with consultants and direct patient care
Anticipated Discharge: 24 - 48 hours
Subjective/Interval History
-
Date of Service: August 05, 2024
Objective Data
-
Labs:
Laboratory Results
08/05/24
07:50
WBC 7.2
Hgb 13.3
Hct 39.9
Plt Count 166
Sodium 143
Potassium 4.1
Chloride 109 H
Carbon Dioxide 23
BUN 23 H
Creatinine 0.8
Glucose 91
Calcium 8.5
Vital Signs:
Vital Signs
Temp Pulse Resp BP Pulse Ox
97.8 F 66 18 107/74 96
08/05/24 11:28 08/05/24 11:28 08/05/24 11:28 08/05/24 11:28 08/05/24 11:28
I&O
08/04/24 08/05/24 08/06/24
06:59 06:59 06:59
Intake Total 1320 / 1320
Balance 1320 / 1320
Review of Systems
-
History Source: Patient
All other systems: Reviewed and negative
Physical Exam
-
General: No Apparent Distress
HEENT: Normocephalic
Cardiac: Regular Rhythm
GI: Soft, Nontender and Nondistended
Genito-urinary: No Costovertebral Tender
Musculoskeletal: No Clubbing, No Cyanosis and No Edema
Neuro: Awake, Alert, Oriented and AO x 3
Psych: Calm
[2024-08-05 13:24] LABS: ALT (SGPT) 18 U/L (0-35); AST (SGOT) 22 U/L (14-36); Albumin 3.2 g/dl (3.5-5.0); Alkaline Phosphatase 75 U/L (38-126); Direct Bilirubin 0.1 mg/dl (0.0-0.4); LDH 192 U/L (120-246); Lipase 93 U/L (23-300); Total Protein 5.6 g/dl (6.3-8.2)
[2024-08-05 13:57] LABS: Glycohemoglobin (HgbA1c) 5.8 % (4.0-5.6)
[2024-08-05 15:45] VITALS: BP 104/50
[2024-08-05] MEDS: LIPITOR 40 MG PO (17:30)
[2024-08-05 19:55] VITALS: BP 150/83
[2024-08-05] MEDS: ARICEPT 10 MG PO (20:44)
[2024-08-05] MEDS: ELIQUIS 10 MG PO (20:44)
[2024-08-05] MEDS: MELATONIN 5 MG PO (23:03)
[2024-08-05 23:48] VITALS: BP 136/66
[2024-08-06] VITALS (7 sets, daily range): BP systolic 90–148; BP diastolic 64–81; PULSE 57–70
[2024-08-06] MEDS: NSS IV (01:50)
--- NOTE | 2024-08-06 01:50 | PTCARENOTE ---
Patient frequently getting out of bed. Setting off bed alarm. Patient seems confused but able to be reoriented after a couple of minutes. Very forgetful. RN called for med sitter, unfortunately non are available at this time. Patient hooked up to
IVF. Frequently wrapping herself around in IV tubing and pulling at the line when getting out of bed. Patient educated about the importance of calling for assistance due to high risk of falling, and pulling out IV site. Patient caught climbing over
the side rails of bed at times. Pt wanted to be disconnected. RN disconnected patient for safety. bed alarm is in place. call su is within reach. TRAINING AND DEVELOPMENT OFFICER aware.
[2024-08-06] MEDS: ELIQUIS 10 MG PO (08:57)
[2024-08-06] MEDS: PEPCID 20 MG PO (08:59)
[2024-08-06] MEDS: BUSPAR 10 MG PO (09:00)
[2024-08-06] MEDS: DIOVAN 40 MG PO (09:01)
[2024-08-06] MEDS: LEXAPRO 20 MG PO (09:02)
[2024-08-06] MEDS: DITROPAN 5 MG PO (09:03)
[2024-08-06] MEDS: FLUSH (NSS) 2 FLUSH IV (09:04)
[2024-08-06 09:26] LABS: ALT (SGPT) 21 U/L (0-35); AST (SGOT) 26 U/L (14-36); Albumin 4.1 g/dl (3.5-5.0); Alkaline Phosphatase 80 U/L (38-126); Direct Bilirubin 0.1 mg/dl (0.0-0.4); Total Protein 6.8 g/dl (6.3-8.2)
--- NOTE | 2024-08-06 12:05 | PTCARENOTE ---
Reports that patient was confused over night. RN over night placed request for med sitter. Med sitter set up. Patient currently oriented but has a high level of anxiety which patient states is her baseline. Patient assisted to chair and toileted
frequently. Reinforced need to ring when she needs to get OOB or has any other needs. Pastoral care contacted to round on patient.
--- NOTE | 2024-08-06 12:15 | W.PN.HOSP.TC ---
Today's Communication/Plan
-
dc
Assessment / Plan
Assessment / Plan
79yo F with PMHx of anxiety, CVA, dementia, urinary urgency, HTN came to ED with concern for episode of unresponsiveness and near-syncope. Labs without significant abnormalities. As per family - patient had disrupted sleep pattern and had episode of
AMS last year with neg EEG at that time. Also concern for tremulous activity. Found acute pulmonary embolism without complications and started on Eliquis. PT/OT recommended d/c home with 24h supervision 2/2 dementia. Family will have to arrange -
discussed with daughter over the phone and son in law. No orthostasis on PT assessment - dehydration possibly an issue. Outpatient cancer screen with PCP and Tool Machinist advised
Medically stable fore d/c
A/P:
#Syncope, most likely 2/2 episodes of orthostatic hypotension or bradycardia
Aricept dose decreased
cobt tele
Echo: EF 65%, no R heart strain, Estimated pulmonary artery pressure of 42 mmHg
Hydrate
PT/OT: recommended home with 24h supervision 2/2 dementia
Ortho VS not clearly suggestive of hypotension
Improved on IVF - also had episodes of dehydration before
TSH WNL
Brain MRI as of 06/23/24 - no acute findings, microangiopathic ischemia
#Intermittent nausea
resolved
CT abd/pelvis unremarkable
Lipase WNL
#Hepatic cyst or hemangioma stable from 2020
#Non-obstructing nephrolithiasis
#Renal cysts stable from 2020
Encourage hydration
#Acute Pulmonary embolism
unclear if provoked or unprovoked
No hypoxia, no R heart strain -reasonable for DOAC
LE US neg for DVT
Outpatient cancer screen and Tool Machinist advised
#preDM
HgbA1c 5.8%
Follow up with PCP
#Essential HTN
#HLD
#Dementia, unspecified
cont home meds
avoid hypotension
Decrease Aricept
DVT ppx lovenox
Full code
I have spent at least 39min reviewing chart, test results, communication with consultants and direct patient care
Anticipated Discharge: Today
Subjective/Interval History
-
Date of Service: August 06, 2024
Objective Data
-
Labs:
Laboratory Results
08/06/24
06:58
Total Bilirubin 1.0
AST 26
ALT 21
Alkaline Phosphatase 80
Vital Signs:
Vital Signs
Temp Pulse Resp BP Pulse Ox
97.7 F 60 17 117/68 96
08/06/24 11:09 08/06/24 11:09 08/06/24 11:09 08/06/24 11:09 08/06/24 11:58
I&O
08/05/24 08/06/24 08/07/24
06:59 06:59 06:59
Intake Total 1320 / 1320 1040 / 1040
Balance 1320 / 1320 1040 / 1040
Review of Systems
-
History Source: Patient
All other systems: Reviewed and negative
Physical Exam
-
General: No Apparent Distress
HEENT: Normocephalic
Respiratory: Clear to Auscultation
Cardiac: Regular Rhythm
GI: Soft, Nontender and Nondistended
Neuro: Awake, Alert, Oriented and AO x 3
Psych: Calm
--- NOTE | 2024-08-06 12:30 | W.DCSUMMARY ---
Discharge Summary
Discharge Data
Date of Admission: 08/04/24
Date of Discharge: 08/06/24
-
Pending Results: No
Hospital Course
79yo F with PMHx of anxiety, CVA, dementia, urinary urgency, HTN came to ED with concern for episode of unresponsiveness and near-syncope. Labs without significant abnormalities. As per family - patient had disrupted sleep pattern and had episode of
AMS last year with neg EEG at that time. Also concern for tremulous activity. Found acute pulmonary embolism without complications and started on Eliquis. PT/OT recommended d/c home with 24h supervision 2/2 dementia. Family will have to arrange, CM
was involved - discussed with daughter over the phone and son in law. No orthostasis on PT assessment - dehydration possibly an issue. Outpatient cancer screen with PCP and Knot Cutter advised. As per vendor recommendation: there is no weight or
age-adjusted dose of Apixaban for the treatment of pulmonary embolism. Aspirin stopped to decrease risk of bleeding.
Medically stable fore d/c
I have spent at least 39min reviewing chart, test results, communication with consultants and direct patient care
A/P:
#Syncope, most likely 2/2 episodes of orthostatic hypotension or bradycardia
#Intermittent nausea
#Hepatic cyst or hemangioma stable from 2020
#Non-obstructing nephrolithiasis
#Renal cysts stable from 2020
#Acute Pulmonary embolism
#preDM
#Essential HTN
#HLD
#Dementia, unspecified
Discharge Plan
-
Patient Disposition: Home (Routine Discharge)
Discharge Diagnosis/Procedures: Pulmonary embolism, dehydration
Diet: Diabetic, Carb Controlled
Activity: As tolerated
Additional Activity: Recommend family to arrange 24h supervision
Driving Restrictions: No driving
Referrals:
Kai Bai DO [Active] - in one to two months (For pulmonary embolism)
Clemencia Puga DO [Family Provider] - (Please eval for repeated mammogram, colonoscopy and consider referral to COMMUNICATIONS SUPERINTENDENT for Pap smear in view of new pulmonary embolism)
Prescriptions:
New
donepezil 10 mg Tablet
10 mg PO HS Qty: 30 0RF
Eliquis DVT-PE Treat 30D Start 5 mg (74 tabs) tablets,dose pack
5 mg PO ONCE Qty: 74 0RF
Rx Instructions:
take 10mg BID for 6 days, then start 5mg BID until stopped by your doctor
Continued
atorvastatin [Lipitor] 40 mg Tablet
40 mg PO QPM
oxybutynin chloride 10 mg Tablet Extended Release 24hr
10 mg PO DAILY
buspirone 10 mg Tablet
10 mg PO BID
escitalopram oxalate [Lexapro] 20 mg Tablet
20 mg PO DAILY
valsartan 40 mg Tablet
40 mg PO DAILY
ondansetron 4 mg tablet,disintegrating
4 mg PO Q8HPRN PRN (Reason: nausea and vomiting)
Discontinued
cephalexin 500 mg capsule
500 mg PO BID 7 Days Qty: 14 0RF
aspirin 81 mg Tablet,Delayed Release (Dr/Ec)
81 mg PO DAILY
donepezil 23 mg Tablet
23 mg PO HS
Discharge Orders:
Discharge Patient (As Directed); Ordered 08/06/24
Ordered By: Carlos Tirado
Discharge Date and Time
Print Language: NIGERIAN
--- NOTE | 2024-08-06 13:04 | PTCARENOTE ---
IV removed and tele removed. Discharge instructions reviewed with patient and son in law. Both verbalize understanding of teaching and deny questions at this time. Flu vaccine will be given prior to discharge.
--- NOTE | 2024-08-06 13:37 | CM ---
Pt will d/c today
Pt seen bedside w/ son in law.
Per son in law pt is current w/ [facility]. Return referral submitted in [facility]. Liaison made aware
Per son, there are concerns w/ ongoing care for pt as she is a fall risk and is demented.
Pt's grandson does live w/ her however, he is not home all the time and pt is requiring more care throughout the day per son in law
Per son in law, his keeps having to call out for work to care for pt and next week he will be in [place]. Grandson works and pt will need support in the home as she currently requires it.
Son in law requested option for rehab, CM explained per PT/OT pt does not have any skilled needs and pt would not be accepted. CM discussed the option of private duty aides/caregivers.
Son in law agreeable to [facility] private duty. CM provided phone number to contact and discuss pt's needs and review out of pocket costs
IMM reviewed, pt given copy. Copy placed in cart
[facility]

Plan: Home w/ [facility] and poss private duty w/ [facility] services if family agrees
[2024-08-06] MEDS: FLUAD (65 yr+) 2024-2025 FORMULA 0.5 ML IM (13:38)
--- NOTE | 2024-08-06 14:07 | VNURNOTE ---
Spoke with patient's son in law Ed who was at bedside. Reviewed plan to resume [facility] services. He is in agreement. [facility] Intake aware of DC today.
--- NOTE | 2024-08-06 14:21 | PTCARENOTE ---
Patient given flu vaccine. Reinforced Eloquis education with patient and son-in-law. Patient to take 10 mg BID for 5 days and then decrease to 5mg BID. Both verbalize understanding of education. Patient left via wheelchair with staff escort.
Patient's son-in-law here at bedside to transport patient home.
== END 2024-08-06 14:20 | disposition home health service (06) | DRG 176 ==
LOC: 4 EAST ACU 12:14
PROVIDERS: ADMITTING PHYSICIAN Internal Medicine; ATTENDING PHYSICIAN Internal Medicine; CONSULT PHYSICIAN Psychiatry & Neurology Neurology; EMERGENCY PHYSICIAN Emergency Medicine; FAMILY PHYSICIAN Internal Medicine
PROC: 3E02340 Introduction of Influenza Vaccine into Muscle, Percutaneous Approach (ICD-10-PCS; 2024-08-06)
DX: I26.99 Other pulmonary embolism without acute cor pulmonale (principal); F01.A3 Vascular dementia, mild, with mood disturbance; F01.A4 Vascular dementia, mild, with anxiety; I10 Essential (primary) hypertension; D18.09 Hemangioma of other sites; E78.00 Pure hypercholesterolemia, unspecified; G47.00 Insomnia, unspecified; I95.1 Orthostatic hypotension; K21.9 Gastro-esophageal reflux disease without esophagitis; N28.1 Cyst of kidney, acquired; N20.0 Calculus of kidney; R73.03 Prediabetes; Z86.73 Personal history of transient ischemic attack (TIA), and cerebral infarction without residual deficits; R39.15 Urgency of urination; E86.0 Dehydration; Z87.891 Personal history of nicotine dependence; Z88.5 Allergy status to narcotic agent; Z88.2 Allergy status to sulfonamides; Z79.82 Long term (current) use of aspirin; Z79.899 Other long term (current) drug therapy; Z23 Encounter for immunization
CPT/HCPCS: 70450; 71275; 74177; 80048; 80053; 80076; 82248; 82607; 82746; 83036; 83615; 83690; 84443; 85025; 85027; 85379; 85652; 90662; 93005; 93306; 93970; 96361; 97162; 97166; 99285; G0008; Q9967

== ENCOUNTER 2024-11-26 15:42 | Emergency (ER) | payer OTHER, SELFPAY ==
[2024-11-26 15:45] VITALS: BP 131/73
--- NOTE | 2024-11-26 15:47 | ED.GENMED ---
History of Present Illness
General
Chief Complaint: Change in Mental Status
Source: patient and ambulance crew
Time Seen by Provider: 11/26/24 15:45
History of Present Illness
History of Present Illness:
79-year-old female with past medical history of CVA (no residual deficits), mild cognitive impairment, hyperlipidemia presenting to the ER with EMS from [facility] for evaluation at the request of primary care doctor.
Patient reportedly saw her primary care doctor yesterday but for unknown reasons. Patient states that she has no recollection of seeing the primary care provider yesterday. Patient is without any complaints today including headache, visual
changes, focal weakness or numbness, chest pain or shortness of breath, abdominal pain, nausea, vomiting, fevers or recent illnesses. Patient states that she feels as if she is in her usual state of health. Both the patient and EMS note that with
patient's previous CVA she reportedly did not have any symptoms at that time but it is unclear as to how patient was diagnosed or has a known history of previous CVA. Patient unsure if she is on any anticoagulants.
Past History
Past History
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
ED Past Surgical History: Gynecological (Hysterectomy)
Social History
Tobacco: Former smoker
Alcohol: None
Drug: None
Personal:
Living: assisted living
Review of Systems
Review of Systems
All Other Systems: ROS reviewed and negative except as documented in HPI and ROS
Phy Exam
Physical Exam
Physical Exam:
GENERAL: Alert , in no apparent distress
HEAD: Normocephalic atraumatic
EYE: pupils equal and reactive
NECK: Supple, no significant adenopathy.
ENT: o/p clr, mmm.
CARDIAC: Regular rate and rhythm, no murmur
LUNGS: Clear breath sounds bilaterally, no acute respiratory distress, no wheezes/rales/rhonchi
ABDOMEN: Soft, without focal tenderness, no r/g, no cvat
NEUROLOGICAL: Alert and oriented, no focal neuro deficits, moves all extremities, answers questions appropriately, no dysmetria or dysarthria.
SKIN: Warm and dry, skin intact.
MUSCULOSKELETAL: No edema, well perfused.
PSYCH: Normal and appropriate interaction.
Scores
NIH Stroke Score
Level of Consciousness: 0 - Alert
LOC Questions: 0-Answers both correctly
LOC Commands: 0-Performs both correctly
Best Horizontal Gaze: 0-Normal
Visual [place]: 0=Normal, no visual loss
Facial Palsy: 0=Normal, symmetrical
Motor - Right Arm: 0=No drift 10 seconds
Motor - Left Arm: 0=No drift 10 seconds
Motor - Right Le-No drift 5 seconds
Motor - Left Le-No drift 5 seconds
Limb Ataxia: 0-Absent
Sensation: 0-Normal
Best Language: 0-No aphasia
Dysarthria: 0-Normal
Extinction and Inattention: 0-No abnormality
Total Score:: 0
Heart Failure Risk
Heart Failure Risk Score: Not Applicable
Heart Score for Chest Pain Patients
STEMI patient?: Not applicable
Withdrawal Assessment of Alcohol
Withdrawal Assessment Completed?: Not applicable
Course
Orders/Labs/Results
Orders:
Orders
11/26/24 15:46
Electrocardiogram (*1) Urgent
Reason for Study: TIA/Stroke
CT Head W/o Iv Contrast Urgent
Comment:
Reason For Exam: hx of CVA, change in mental status
EKG- Treatment ONCE
11/26/24 15:50
Basic Metabolic Panel Urgent
Complete Blood Count/With Diff Urgent
TSH Urgent
11/26/24 16:22
Urinalysis Reflex To Culture Urgent
Date Specimen was Collected: 11/26/24
Time Specimen was Collected: 16:20
Urine Microscopic Reflex Cult Urgent
Urine Culture Urgent
KEYSHA Source: U
Specimen Description:
Date Specimen was Collected: 11/26/24
Time Specimen was Collected: 16:20
11/26/24 16:42
Cephalexin Monohydrate [Keflex] 500 mg PO NOW STA
Abnormal Lab Results
11/26/24 11/26/24
15:50 16:22
MCH 31.1 H pg
(27.0-31.0)
MCHC 32.9 L g/dL
(33.0-37.0)
BUN 27 H mg/dl
(7-17)
Ur Occult Blood Reflex 1+ A
(Negative)
Urine Nitrite (Reflex) Positive A
(Negative)
Leukocyte Esterase Rfl 3+ A
(Negative)
Urine WBC (Reflex) 80-90 A /HPF
(0-5)
Urine Bacteria (Reflex) Many A
(Negative)
Urine Albumin (Reflex) 1+ A
(Neg - Trace)
11/26/24 15:50
11/26/24 15:50
Vital Signs
Initial and Last Documented VS:
Initial Vital Signs
Temp Pulse Resp BP Pulse Ox
98.1 F 63 18 131/73 97
11/26/24 15:45 11/26/24 15:45 11/26/24 15:45 11/26/24 15:45 11/26/24 15:45
Last Documented Vital Signs
Temp Pulse Resp BP Pulse Ox
98.1 F 64 18 124/73 97
11/26/24 15:45 11/26/24 17:07 11/26/24 17:07 11/26/24 17:07 11/26/24 17:07
MDM/Problems Addressed
Differential Diagnosis Includes:
Exacerbation of mild cognitive impairment, CVA considered given history, less concern for seizure, electrolyte derangement, no symptoms to suggest infectious etiology but will check urine to rule out UTI
MDM/Problems Addressed:
79-year-old female presenting to the ER for evaluation of questionable change in mental status. Patient stating she feels as if she is in her usual state of health. She is unable to recollect her visit with primary care provider yesterday or why
she had the appointment in the first place. Family on their way to the ER presently, no will get further history from them. In the meantime we will check labs, EKG, CT of the head, urinalysis. Disposition pending
Chronic conditions affecting care: Neurological disorder
*Pulse Oximetry
Patient hypoxic: no
*EKG
Heart Rate: 60
Rate: normal
Rhythm: sinus
[place]: normal axis
Ischemia: no ischemia
*Reed Repairer Interpretation
Rate: normal
Rhythm: sinus
*Critical Care Note
Total Time (30-74mins, 75-104mins- exclusive of procedures): Not Applicable
Data Reviewed
Review of Other/Old Records Reveals: Labs, Records and Radiology Studies
Comment
Comment:
3:55 PM - [facility] now at bedside. Patient seems more repetitive with answers and history per family. Well visit with PMD yesterday. No other symptoms noticed.
Patient Management
Discussion with other providers: PCP
Escalation/DeEscalation of care consider admission/obs:
Patient's urine is consistent with urinary tract infection which is the likely cause for patient's change in mental status. She is eating dinner, well-appearing and in no acute distress. I do think it is reasonable for patient to be discharged
home. Based off of record review patient had a urine culture done in July which showed pansensitive E. coli. Prescription for Keflex sent to pharmacy. First dose given here prior to discharge. I notified patient's primary care provider of
workup results and they are in agreement with treatment plan. Patient stable for discharge home. Family aware of return precautions.
ED Attending Note
-
Portions of this chart may have been created with voice recognition software.� Occasional wrong word or��sound alike� substitutions may have occurred due to the inherent limitations of voice recognition software.
Discharge Plan
Departure
Patient Disposition: Home (Routine Discharge)
Date of Disposition: 11/26/24
Time of Disposition: 16:43
Patient with high blood pressure during this ER visit?: No
Discharge Problem:
Urinary tract infection
Instructions: Urinary tract infection in adults - ED discharge instructions
Prescriptions:
New
cephalexin 500 mg tablet
500 mg PO Q12H Qty: 19 0RF
No Action
atorvastatin [Lipitor] 40 mg Tablet
40 mg PO QPM
oxybutynin chloride 10 mg Tablet Extended Release 24hr
10 mg PO DAILY
buspirone 10 mg Tablet
10 mg PO BID
escitalopram oxalate [Lexapro] 20 mg Tablet
20 mg PO DAILY
valsartan 40 mg Tablet
40 mg PO DAILY
ondansetron 4 mg tablet,disintegrating
4 mg PO Q8HPRN PRN (Reason: nausea and vomiting)
donepezil 10 mg Tablet
10 mg PO HS Qty: 30 0RF
Eliquis DVT-PE Treat 30D Start 5 mg (74 tabs) tablets,dose pack
5 mg PO ONCE Qty: 74 0RF
Rx Instructions:
take 10mg BID for 6 days, then start 5mg BID until stopped by your doctor
Referrals:
Clemencia Puga DO [Family Provider] -
Interventions
Interventions:
*Risk Screen - Suicide Last Done: 11/26/24 15:55
*General Assessment Last Done: 11/26/24 15:55
*Neglect/Abuse Screening Last Done: 11/26/24 15:55
*ED- Fall Risk Assessment Last Done: 11/26/24 15:55
*ED COVID-19 Vaccine History Last Done: 11/26/24 15:55
*Nursing Disposition Last Done: 11/26/24 17:23
ED- Pulmonary Assessment Last Done: 11/26/24 16:00
ED- Neurological Assessment Last Done: 11/26/24 16:00
ED- Cardiac Assessment Last Done: 11/26/24 16:00
Discharge Date and Time
Discharge Date/Time: 11/26/24 17:24
Print Language: JAPANESE
[2024-11-26 15:51] VITALS: BMI 26.1
[2024-11-26 16:00] VITALS: BP 130/84
[2024-11-26 16:01] LABS: % Basophils 0.5 % (0-2); % Eosinophils 2.7 % (0-6); % Immature Granulocytes 0.2 % (0-0.5); % Lymphocytes 32.2 % (20.5-51.1); % Monocytes 9.2 % (1.7-9.3); % Neutrophils 55.2 % (42.2-75.2); Absolute Eosinophils 0.2 10^3/uL (0-0.7); Absolute Monocytes 0.6 10^3/uL (0.1-0.6); Absolute Neutrophils 3.5 10^3/uL (1.4-6.5); Hematocrit 41.4 % (37.0-47.0); Hemoglobin 13.6 g/dL (12.0-16.0); Mean Corp Hgb Conc. 32.9 g/dL (33.0-37.0); Mean Corpuscular Hgb 31.1 pg (27.0-31.0); Mean Corpuscular Volume 94.7 fL (81.0-99.0); Mean Platelet Volume 10.1 fL (7.4-10.4); Nucleated Red Blood Cells % 0 %; Platelet Count 239 10^3/uL (130-400); Red Blood Cell Count 4.37 10^6/uL (4.20-5.40); Red Cell Dist. Width 12.5 % (11.5-14.5); White Blood Cell Count 6.3 10^3/uL (4.8-10.8)
[2024-11-26 16:16] LABS: Blood Urea Nitrogen 27 mg/dl (7-17); Calcium 9.1 mg/dl (8.4-10.2); Carbon Dioxide 27 mmol/L (22-30); Chloride 102 mmol/L (98-107); Estimated Creatinine Clearance 46 ml/min; Glucose 84 mg/dl (70-99); Sodium 138 mmol/L (135-145); eGFR > 60.00
[2024-11-26 16:20] VITALS: BP 131/70
[2024-11-26 16:29] LABS: Urine Albumin 1+ (Neg - Trace); Urine Bilirubin Negative (Negative); Urine Character Clear (Clear); Urine Color Yellow; Urine Glucose Negative (Negative); Urine Ketone Negative (Negative); Urine Leukocyte 3+ (Negative); Urine Nitrite Positive (Negative); Urine Occult Blood 1+ (Negative); Urine Specific Gravity 1.025 (<1.030); Urine Urobilinogen Negative (Neg - 1+)
[2024-11-26 16:36] LABS: Urine Red Blood Cell 0-2 /HPF (0-2); Urine Squamous Cell >30 /LPF (Few); Urine White Cell 80-90 /HPF (0-5)
[2024-11-26 16:37] LABS: Urine Bacteria Many (Negative)
[2024-11-26 16:44] LABS: TSH 1.43 uIU/ml (0.47-4.68)
[2024-11-26 17:07] VITALS: BP 124/73
[2024-11-26] MEDS: KEFLEX 500 MG PO (17:12)
== END 2024-11-26 17:24 | disposition home or self-care (01) ==
LOC: EMR 15:42
PROVIDERS: Physician Assistant Medical; EMERGENCY PHYSICIAN Emergency Medicine; FAMILY PHYSICIAN Internal Medicine
DX: R41.82 Altered mental status, unspecified (principal); E78.00 Pure hypercholesterolemia, unspecified; F03.93 Unspecified dementia, unspecified severity, with mood disturbance; F03.94 Unspecified dementia, unspecified severity, with anxiety; N39.0 Urinary tract infection, site not specified; Z86.73 Personal history of transient ischemic attack (TIA), and cerebral infarction without residual deficits; Z87.891 Personal history of nicotine dependence; Z90.710 Acquired absence of both cervix and uterus
CPT/HCPCS: 99284; 70450; 80048; 81003; 81015; 84443; 85025; 87086; 87088; 93005

== ENCOUNTER → 2024-12-23 09:29 | Outpatient (REF) | payer OTHER, SELFPAY | LOC: HWWDC 09:29 | PROVIDERS: ATTENDING PHYSICIAN Internal Medicine | DX: Z12.31 Encounter for screening mammogram for malignant neoplasm of breast (principal) | CPT/HCPCS: 77063; 77067 ==

== ENCOUNTER 2025-05-01 17:09 | Inpatient (IN) | payer OTHER, SELFPAY ==
[2025-05-01] VITALS (9 sets, daily range): BP systolic 107–151; BP diastolic 54–91; PULSE 57–63; BMI 25.5; BMI 24.9
[2025-05-01 11:12] LABS: Hematocrit 41.1 % (37.0-47.0); Hemoglobin 13.7 g/dL (12.0-16.0); Mean Corp Hgb Conc. 33.3 g/dL (33.0-37.0); Mean Corpuscular Volume 94.7 fL (81.0-99.0); Nucleated Red Blood Cells % 0 %; Platelet Count 178 10^3/uL (130-400); Red Cell Dist. Width 13.1 % (11.5-14.5)
[2025-05-01 11:29] LABS: ALT (SGPT) 17 U/L (0-35); AST (SGOT) 24 U/L (14-36); Albumin 4.2 g/dl (3.5-5.0); Alkaline Phosphatase 61 U/L (38-126); Blood Urea Nitrogen 21 mg/dl (7-17); Calcium 8.8 mg/dl (8.4-10.2); Carbon Dioxide 26 mmol/L (22-30); Chloride 108 mmol/L (98-107); Estimated Creatinine Clearance 44 ml/min; Glucose 132 mg/dl (70-99); Lipase 78 U/L (23-300); Potassium 4.0 mmol/L (3.5-5.1); Sodium 139 mmol/L (135-145); Total Protein 6.9 g/dl (6.3-8.2); eGFR > 60.00
[2025-05-01] MEDS: ZOFRAN 4 MG IV (12:21)
[2025-05-01 12:35] LABS: Urine Character Clear (Clear)
[2025-05-01] MEDS: BENADRYL 12.5 MG IV (13:09)
[2025-05-01] MEDS: NSS 500 IV (13:10)
[2025-05-01] MEDS: ANTIVERT 25 MG PO (14:08)
--- NOTE | 2025-05-01 14:12 | ED.GENMED ---
History of Present Illness
General
Chief Complaint: Abdominal Symptoms
Source: patient
Exam Limitations: none
Time Seen by Provider: 05/01/25 11:41
Nursing documentation reviewed up to this point in time: agreed with
History of Present Illness
History of Present Illness:
80-year-old female past medical of previous stroke, vascular dementia presenting to the emergency department today with concerns of multiple falls weakness today denies any specific injuries denies any trauma sustained has had nausea and vomiting.
Also is being treated for UTI with Bactrim over the past few days. Denies fevers or systemic symptoms.
Past History
Past History
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
ED Past Surgical History: Gynecological (Hysterectomy)
Social History
Tobacco: Former smoker
Alcohol: None
Drug: None
Personal:
Living: assisted living
Review of Systems
Review of Systems
Allergies reviewed?: Yes
All Other Systems: ROS reviewed and negative except as documented in HPI and ROS
Phy Exam
Physical Exam
Physical Exam:
GENERAL: Alert , in no apparent distress
EYE: pupils equal and reactive
NECK: Supple, no significant adenopathy.
ENT: o/p clr, mmm.
CARDIAC: Regular rate and rhythm .
LUNGS: Clear breath sounds bilaterally, no acute respiratory distress, no wheezes/rales/rhonchi
ABDOMEN: Soft, without focal tenderness, no r/g, no cvat
NEUROLOGICAL: Alert and oriented, no focal neuro deficits moving extremities normally
SKIN: Warm and dry, skin intact.
MUSCULOSKELETAL: No edema, well perfused.
PSYCH: Normal and appropriate interaction.
Course
Orders/Labs/Results
Orders:
Orders
05/01/25 11:04
Complete Blood Count/With Diff Urgent
Comprehensive Metabolic Panel Urgent
Lipase Urgent
05/01/25 11:57
CT Head W/o Iv Contrast Urgent
Comment:
Reason For Exam: hit head on eilquis
05/01/25 12:19
Ondansetron Injectable [Zofran] 4 mg .ROUTE .STK-MED ONE
05/01/25 12:20
Ondansetron Injectable [Zofran] 4 mg IV NOW STA
05/01/25 12:22
Urinalysis Reflex To Culture Urgent
Date Specimen was Collected: 05/01/25
Time Specimen was Collected: 11:09
05/01/25 13:02
Diphenhydramine [Benadryl] 12.5 mg IV NOW STA
Pt Eval And Treat Urgent
Activity Level: Ambulate
05/01/25 13:07
0.9% Sodium Chloride 500 ml [Nss] 500 ml IV BOLUS
05/01/25 13:56
Meclizine [Antivert] 25 mg PO NOW STA
05/01/25 Dinner
Regular
At Your Request: Full Participation
05/01/25 15:56
EKG [Electrocardiogram (*1)] Routine
Reason for Study: Vertigo / Dizzy
05/01/25 16:56
Admit/Transfer Patient As Directed
Co-Sign Provider:
Level of Care: Inpatient admission
Assign to:: Telemetry
Physician / Group: Hospitalist
Diagnosis: BPPV
Reason for Telemetry: Other
Other Reason for Telemetry: vertigo
Date to Stop Telemetry: 05/03/25
Time to Stop Telemetry: 11:00
Reason for Hospitalization: as above
Expected length of stay greater than two midnights?: Yes
ELOS- Estimated Length of Stay in days: 3
I certify the patient meets the requirements for IP care: Yes
05/01/25 16:57
PRN Pain Medication Management As Directed
May give lesser potent ordered pain med per pt: Yes
preference::
Protocol:: Medication orders for pain may be administered in a
manner that supports deferring to patient preference
when the pt is:
- Requesting an ordered lesser potent pain medication.
Least to most potent pain medications are defined
as: acetaminophen < NSAID < tramadol < opioids
(morphine, oxycodone, hydromorphone).
- Requesting a lesser dose of the same medication IF
ORDERED.
- Requesting a less intrusive route of administration
if both routes are prescribed by the provider (PO <
IV).
05/01/25 16:59
Code Status As Directed
Resuscitation Status: Full Code
05/01/25 17:05
PRN Pain Medication Management As Directed
May give lesser potent ordered pain med per pt: Yes
preference::
Protocol:: Medication orders for pain may be administered in a
manner that supports deferring to patient preference
when the pt is:
- Requesting an ordered lesser potent pain medication.
Least to most potent pain medications are defined
as: acetaminophen < NSAID < tramadol < opioids
(morphine, oxycodone, hydromorphone).
- Requesting a lesser dose of the same medication IF
ORDERED.
- Requesting a less intrusive route of administration
if both routes are prescribed by the provider (PO <
IV).
05/01/25 18:12
0.9% Sodium Chloride 1000 ml [Nss] 1,000 ml IV 80 mls/hr
Acetaminophen [Tylenol] 650 mg PO Q4HPRN PRN
Atorvastatin [Lipitor] 40 mg PO QPM
Bisacodyl [Dulcolax] 10 mg RECTAL [id number] PRN
Docusate W/Senna [Senokot-S] 1 tablet PO BIDPRN PRN
Ondansetron Injectable [Zofran] 4 mg IV Q6HPRN PRN
Polyethylene Glycol Powder [Miralax] 17 grams PO DAILYPRN PRN
05/01/25 18:12
Activity As Directed
Activity Level: As Tolerated
Orthostatic Vital Signs As Directed
Orthostatic VS Frequency: BID
Vital Signs As Directed
Frequency: Per unit guidelines
05/01/25 20:00
Apixaban [Eliquis] 2.5 mg PO BID
Buspirone [Buspar] 10 mg PO BID
Memantine HCl [Namenda] 5 mg PO BID
05/01/25 22:00
Donepezil HCl [Aricept] 20 mg PO HS
Meclizine [Antivert] 12.5 mg PO TID
05/02/25 08:00
Escitalopram Oxalate [Lexapro] 20 mg PO DAILY
Valsartan [Diovan] 40 mg PO DAILY
05/02/25 09:24
Basic Metabolic Panel IN AM
Complete Blood Count/With Diff IN AM
Magnesium IN AM
05/03/25 11:00
DC Protocol for Telemetry ONCE
Abnormal Lab Results
05/01/25
11:04
MCH 31.6 H pg
(27.0-31.0)
MPV 11.0 H fL
(7.4-10.4)
Neutrophils % 77.4 H %
(42.2-75.2)
Lymphocytes % 15.5 L %
(20.5-51.1)
Chloride 108 H mmol/L
(98-107)
BUN 21 H mg/dl
(7-17)
Glucose 132 H mg/dl
(70-99)
05/01/25 11:04
05/01/25 11:04
Vital Signs
Initial and Last Documented VS:
Initial Vital Signs
Temp Pulse Resp BP Pulse Ox
97.5 F 55 16 125/70 95
05/01/25 10:57 05/01/25 10:57 05/01/25 10:57 05/01/25 10:57 05/01/25 10:57
Last Documented Vital Signs
Temp Pulse Resp BP Pulse Ox
98.0 F 69 14 149/76 96
05/04/25 19:04 05/04/25 19:04 05/04/25 19:04 05/04/25 19:04 05/04/25 19:04
MDM/Problems Addressed
MDM/Problems Addressed:
80-year-old female presenting to the emergency department today with concerns of generalized weakness fatigue recently treated for UTI over the past week or so does have associated nausea and vomiting. Here she claims that she feels lightheaded
denies any specific room spinning dizziness. Slightly worse with movement. Initial workup with normal vital signs labs showing potential slight dehydration urinalysis normal no signs of ongoing UTI. Head CT normal. PT assessment was ordered
which revealed symptoms most consistent with vertigo. Patient was given dose of meclizine. Patient still having significant trouble with change in positioning and ambulation. Plan to admit for ongoing treatment and monitoring.
*Pulse Oximetry
SaO2: 98
Oxygen Mode of Delivery: Room air
Patient hypoxic: no
*Critical Care Note
Total Time (30-74mins, 75-104mins- exclusive of procedures): Not Applicable
ED Attending Note
-
Portions of this chart may have been created with voice recognition software.� Occasional wrong word or��sound alike� substitutions may have occurred due to the inherent limitations of voice recognition software.
Discharge Plan
Departure
Patient Disposition: Admit
Date of Disposition: 05/01/25
Time of Disposition: 15:38
Admit to: Med/Surg
Admit to doctor: Brendon
Presentation/result/management discussed w/ accepting MD/DO: Hospitalist
Patient with high blood pressure during this ER visit?: No
Condition: Good
Covid-19: Not Applicable
Discharge Problem:
Vertigo
Interventions
Interventions:
*Risk Screen - Suicide Last Done: 05/01/25 10:57
*General Assessment Last Done: 05/01/25 10:57
*Neglect/Abuse Screening Last Done: 05/01/25 10:57
*ED- Fall Risk Assessment Last Done: 05/01/25 11:11
*ED COVID-19 Vaccine History Last Done: 05/01/25 11:11
*Nursing Disposition Last Done: 05/01/25 18:00
DE-Lhiits-Sullhxxevh Assessment Last Done: 05/01/25 11:13
Discharge Date and Time
Discharge Date/Time: 05/01/25 18:05
--- NOTE | 2025-05-01 16:06 | PHANOTE ---
med rec note- patient does not see an physician at [facility] and is independent, ecw looks fairly recently, awaiting call back from daughter on file.
--- NOTE | 2025-05-01 16:25 | HPS.HSE ---
Addendum entered and electronically signed by Shoaib Olivas MD 05/01/25 17:32:
This is an addendum to the H&P written by Brooke Britton on 05/01/2025. Patient seen and examined independently with resident.
80-year-old female past medical history of vascular dementia, prior CVAs, hypertension, hyperlipidemia, brain aneurysm, anxiety, pulmonary embolsim on Eliquis presenting with multiple falls, weakness today with lightheadedness worse with ambulation
associate with nausea and vomiting and double vision. Treated with UTI with Bactrim over the past few days which she completed.
Vital signs normal. Neurological examination unremarkable.
Labs unremarkable. Urinalysis unremarkable.
CT head shows no evidence of acute intracranial abnormality.
Patient with acute vertigo secondary to BPPV. She was seen by physical therapy and had positive Angeline-Hallpike on her right and unable to tolerate full Luna maneuver. Check orthostatic vital signs. IV fluids. As needed meclizine. PT/OT. Continue
Eliquis.
Original Note:
Family Physician
-
Family Physician: Clemencia Puga DO
Chief Complaint
-
Dizziness
History of Present Illness
This is an 80-year-old female with past medical history of depression, anxiety, CHELO, hypertension, pulmonary embolism, simple complex partial seizure, CVA, vascular dementia who presents to the ED from [facility] after multiple
fall episodes today. The patient reports has been having episodes of lightheadedness, dizziness as well as nausea and vomiting.� She reports lightheadedness worsens with movement especially movement of the head.� She denies hearing loss, denies
ringing in the ears.� She denies any trauma without falls.� She denies weakness, numbness, trouble speaking.� She admits to double vision and unsteady gait especially from a sitting position.� She does not remember how many falls she has had this
past year, but she denies loss of consciousness with the falls. �She denies lightheadedness, palpitations.� She states she has been eating less, drinking less fluid over the past 2 days due to nausea and vomiting episodes.� She denies diarrhea,
denies constipation. Her last bowel movement was yesterday.�She denies urinary symptoms. She does not ambulate with a walker or cane. Pertinent to her history, she was just recently treated for UTI with Bactrim and has completed the course.
In the ED, a PT assessment was done which revealed symptoms consistent with vertigo. She was given a trial of meclizine, but symptoms persisted with changing position and ambulation despite meclizine.
Medical History
Past Medical History
Past Medical History: Reports Other (depression, anxiety, CHELO, hypertension, pulmonary embolism, simple complex partial seizure, CVA, vascular dementia )
Past Surgical History: Reports None
Social History
Tobacco: Former Smoker
Alcohol: Occasional
Drug: None
Living: Assisted Living
Employment: Retired
Family History
Family History: Not pertinent
Allergies / Home Medications
Allergies reflects when Allergies were last updated in [facility].
Home Medications with original date entered in [facility]
Allergy/Medication List:
Allergies
Allergy/AdvReac Type Severity Reaction Status Date / Time
alendronate sodium Allergy chest pain Verified 05/01/25 11:02
meperidine Allergy Rash Verified 05/01/25 11:02
oxycodone (From Percocet) Allergy tachycardia Verified 05/01/25 11:02
Sulfa (Sulfonamide Allergy Nausea / Verified 05/01/25 11:02
Antibiotics) Vomiting/DIARRHEA
Home Medications
atorvastatin 40 mg tablet (Lipitor) 40 mg PO QPM 08/02/24
buspirone 10 mg tablet 10 mg PO BID 08/02/24
escitalopram oxalate 20 mg tablet (Lexapro) 20 mg PO DAILY 08/02/24
valsartan 40 mg tablet 40 mg PO DAILY 08/02/24
apixaban 2.5 mg tablet (Eliquis) 2.5 mg PO BID 05/01/25
donepezil 10 mg tablet 20 mg PO HS 05/01/25
memantine 14 mg capsule sprinkle,extended release 24hr 14 mg PO DAILY 05/01/25
Review of Systems
-
A 12 point ROS was completed and negative except as noted: Yes
Constitutional: Reports Other (All review of system completed and negative except as documented in HPI)
Physical Exam
Vital Signs
Vital Signs
Temp Pulse Resp BP Pulse Ox
97.5 F 63 33 113/91 98
05/01/25 10:57 05/01/25 12:16 05/01/25 12:16 05/01/25 12:16 05/01/25 14:14
Physical Exam
General: Well Developed, Well Nourished and No Apparent Distress
Respiratory: Clear; No Wheezes
Cardiac: S1/S2 and Regular Rhythm
GI: Soft, Non Tender, Non Distended and Normal Bowel Sounds
Musculoskeletal: No Edema and Other (5/5 muscular strength B/L UE and LLE, 3/5 muscular strength RLE)
Skin: Warm
Neuro: Awake, Alert, Oriented and AO x 3
Psych: Calm
Laboratory Results
-
05/01/25 11:04
05/01/25 11:04
Laboratory Results
Total Bilirubin 1.3 mg/dl (0.2-1.3) 05/01/25 11:04
AST 24 U/L (14-36) 05/01/25 11:04
ALT 17 U/L (0-35) 05/01/25 11:04
Alkaline Phosphatase 61 U/L (38-126) 05/01/25 11:04
Lipase 78 U/L (23-300) 05/01/25 11:04
Impression/Plan
-
Assessment/plan
#Acute Vertigo secondary to BPPV
-[place]-Hallpike positive to her right after Physical therapy assessment done in ED
-CT head- No evidence of acute intracranial abnormality.
-Check orthostatics
-EKG
-PT/OT
-Short course meclizine trial
-IV fluids
#Recurrent falls likely multifactorial- Acute
-Fall precautions
-PT/OT
#History of pulmonary embolism
-Continue Eliquis
#Vascular dementia
-Continue donepezil, memantine avoid delirium triggers
#Hypertension
-Continue valsartan
#Depression anxiety
-Continue Lexapro, buspirone
#Hyperlipidemia
-Continue atorvastatin
CODE STATUS full code
DVT prophylaxis Eliquis
--- NOTE | 2025-05-01 17:24 | CM ---
CM reviewed chart, attempted to meet with pt bedside in ED but she was sleeping.
Lives alone in [place] apt at [place]. Independent in ADLs, personal care and ambulation at baseline.
Seen by PT Vestibular Therapy, pt too symptomatic to be discharged home.
PCP: Clemencia Puga
Pharmacy: Unable to obtain as pt sleeping.
CM will continue to follow for all discharge planning needs
[2025-05-01] MEDS: LIPITOR 40 MG PO (18:38)
[2025-05-01] MEDS: NSS 1000 IV (18:38)
[2025-05-01] MEDS: NAMENDA 5 MG PO (20:55)
[2025-05-01] MEDS: ELIQUIS 2.5 MG PO (20:55)
[2025-05-01] MEDS: BUSPAR 10 MG PO (20:55)
[2025-05-01] MEDS: ARICEPT 20 MG PO (21:00)
[2025-05-01] MEDS: ANTIVERT 12.5 MG PO (21:01)
[2025-05-02] VITALS (7 sets, daily range): BP systolic 101–134; BP diastolic 62–73; PULSE 57–76
[2025-05-02] MEDS: NSS 1000 IV ×2 (06:27→22:15)
[2025-05-02] MEDS: ELIQUIS 2.5 MG PO ×2 (08:14→22:09)
[2025-05-02] MEDS: LEXAPRO 20 MG PO (08:14)
[2025-05-02] MEDS: BUSPAR 10 MG PO ×2 (08:14→22:09)
[2025-05-02] MEDS: ANTIVERT 12.5 MG PO ×3 (08:15→22:09)
[2025-05-02] MEDS: DIOVAN 40 MG PO (08:15)
[2025-05-02] MEDS: NAMENDA 5 MG PO ×2 (08:15→22:10)
[2025-05-02] MEDS: ZOFRAN 4 MG IV (09:16)
[2025-05-02 09:49] LABS: Hematocrit 41.0 % (37.0-47.0); Hemoglobin 13.4 g/dL (12.0-16.0); Mean Corp Hgb Conc. 32.7 g/dL (33.0-37.0); Mean Corpuscular Volume 95.3 fL (81.0-99.0); Nucleated Red Blood Cells % 0 %; Platelet Count 172 10^3/uL (130-400); Red Cell Dist. Width 13.3 % (11.5-14.5)
[2025-05-02 10:15] LABS: Blood Urea Nitrogen 13 mg/dl (7-17); Calcium 8.9 mg/dl (8.4-10.2); Carbon Dioxide 27 mmol/L (22-30); Chloride 109 mmol/L (98-107); Estimated Creatinine Clearance 45 ml/min; Glucose 115 mg/dl (70-99); Magnesium 1.8 mg/dl (1.6-2.3); Potassium 3.7 mmol/L (3.5-5.1); Sodium 140 mmol/L (135-145); eGFR > 60.00
--- NOTE | 2025-05-02 12:42 | W.PN.HOSP.TC ---
Today's Communication/Plan
-
mr brain and mra neck
continue vestibular therapy
symptomatic care
Assessment / Plan
Assessment / Plan
1. Intractable vertigo
- Presumed BPPV based on exam although patient not able to tolerate Luna maneuver
- Discussed with PT/OT who is concerned about possible vertebral insufficiency as well
- CT head did not show any acute abnormality
- MRI brain without contrast and MRA neck ordered
- Continue as needed meclizine for now
2. Nausea/vomiting
- From vertigo, continue symptomatic care
3. Memory problems
- Maintain on home dose of memantine/donepezil
4. Generalized anxiety disorder
- Family stated of patient being on benzos, PDMP reviewed and patient never been prescribed benzodiazepine
- Providing Xanax as needed for anxiety, will adjust dosage based on response
- Continue home dose of BuSpar/Lexapro
5. Essential hypertension
- Maintain on valsartan 40 mg daily
6. Hyperlipidemia
- Continue on Lipitor 40 mg every afternoon
7. History of pulmonary embolism
- Maintain on Eliquis therapy
DVT prophylaxis -Eliquis
Full code
Total time spent : 51 mins
I personally saw and examined the patient.
I have reviewed all diagnostic interpretations and treatment plans as written.
Time includes patient management by me, time spent at the patients bedside, time to review lab and imaging results, discussing patient care, documentation in the medical record, and time spent with the family or caregiver and discussing care plan
with RN/Consultants.
Anticipated Discharge: 24 - 48 hours
Subjective/Interval History
-
Date of Service: May 02, 2025
Continues to have vertigo-like symptoms
Feeling nauseous and had vomiting episode as well
No abdominal pain
Anxious
Objective Data
-
Labs:
Laboratory Results
05/02/25
09:24
WBC 6.5
Hgb 13.4
Hct 41.0
Plt Count 172
Sodium 140
Potassium 3.7
Chloride 109 H
Carbon Dioxide 27
BUN 13
Creatinine 0.7
Glucose 115 H
Calcium 8.9
Vital Signs:
Vital Signs
Temp Pulse Resp BP Pulse Ox
97.8 F 57 14 134/68 97
05/02/25 11:19 05/02/25 11:19 05/02/25 11:19 05/02/25 11:19 05/02/25 11:19
I&O
05/01/25 05/02/25 05/03/25
06:59 06:59 06:59
Intake Total 960 / 960
Balance 960 / 960
Review of Systems
-
Respiratory: Reports No Symptoms
Cardiac: Reports No Symptoms
Abdomen/GI: Reports Nausea and Vomiting; Denies Abdominal Pain
Physical Exam
-
General: Negative No Apparent Distress
HEENT: Negative Oxygen
GI: Soft, Nontender and Nondistended
Neuro: Awake, Alert and No Motor Deficits
[2025-05-02] MEDS: LIPITOR 40 MG PO (17:15)
[2025-05-02] MEDS: ARICEPT 20 MG PO (22:09)
[2025-05-03] MEDS: ALPRAZOLAM ODT 0.25 MG PO (00:27)
--- NOTE | 2025-05-03 02:04 | PTCARENOTE ---
Bed alarm activated and pt found OOB in room attempting to ambulate to bathroom. Pt reminded that IVF infusing and standby assist needed due to fall risk. After voiding in bathroom, pt reported feeling like she was 'going to fall down' and upon
return to bed, reported feeling nauseous. Pt anxious. PRN Xanax administered, and this RN found pt had removed IV. IV replaced and IVF restarted.
[2025-05-03 03:00] VITALS: BP 132/68
[2025-05-03 05:46] LABS: Hematocrit 39.8 % (37.0-47.0); Hemoglobin 13.2 g/dL (12.0-16.0); Mean Corp Hgb Conc. 33.2 g/dL (33.0-37.0); Mean Corpuscular Volume 95.0 fL (81.0-99.0); Platelet Count 166 10^3/uL (130-400); Red Cell Dist. Width 13.1 % (11.5-14.5)
[2025-05-03 06:07] LABS: Blood Urea Nitrogen 11 mg/dl (7-17); Calcium 8.5 mg/dl (8.4-10.2); Carbon Dioxide 26 mmol/L (22-30); Chloride 109 mmol/L (98-107); Estimated Creatinine Clearance 45 ml/min; Glucose 103 mg/dl (70-99); Potassium 3.4 mmol/L (3.5-5.1); Sodium 139 mmol/L (135-145); eGFR > 60.00
[2025-05-03 07:10] VITALS: BP 159/83
[2025-05-03] MEDS: DIOVAN 40 MG PO (10:12)
[2025-05-03] MEDS: ANTIVERT 12.5 MG PO ×3 (10:12→20:59)
[2025-05-03] MEDS: LEXAPRO 20 MG PO (10:12)
[2025-05-03] MEDS: ELIQUIS 2.5 MG PO ×2 (10:12→21:00)
[2025-05-03] MEDS: BUSPAR 10 MG PO ×2 (10:12→21:00)
[2025-05-03] MEDS: NAMENDA 5 MG PO ×2 (10:15→20:59)
[2025-05-03 11:10] VITALS: BP 130/65
--- NOTE | 2025-05-03 11:35 | W.PN.HOSP.TC ---
Addendum entered and electronically signed by Steve Mckeon MD 05/03/25 14:10:
Patient continues to have significant dizziness on Luna maneuver
Apparently lives by herself and daughter is JEFFRY.
No strong evidence of patient having vestibulitis. Trying empiric prednisone 40 mg daily, providing first dose now. discontinue if no change or improvement noticed.
Remains unsafe for independent home level discharge, will re-eval with PT tomorrow.
Original Note:
Today's Communication/Plan
-
Repeat PT evaluation
Possible discharge later today
Assessment / Plan
Assessment / Plan
1. Intractable vertigo
- Presumed BPPV based on exam although patient not able to tolerate Luna maneuver
- Discussed with PT/OT who is concerned about possible vertebral insufficiency as well
- CT head did not show any acute abnormality
- MRI brain without contrast and MRA neck did not show any acute issues.
- Continue as needed meclizine for now
- Repeat PT evaluation-patient does well can be discharged home with symptomatic care and outpt vestibular therapy follow-up
2. Nausea/vomiting - Improved
- From vertigo, continue symptomatic care
3. Memory problems
- Maintain on home dose of memantine/donepezil
4. Generalized anxiety disorder
- Family stated of patient being on benzos, PDMP reviewed and patient never been prescribed benzodiazepine
- Providing Xanax as needed for anxiety, will adjust dosage based on response
- Continue home dose of BuSpar/Lexapro
5. Essential hypertension
- Maintain on valsartan 40 mg daily
6. Hyperlipidemia
- Continue on Lipitor 40 mg every afternoon
7. History of pulmonary embolism
- Maintain on Eliquis therapy
DVT prophylaxis -Eliquis
Full code
Anticipated Discharge: Today
Subjective/Interval History
-
Date of Service: May 03, 2025
Subjectively feeling better
Although voicing having some nausea no reported nausea vomiting episode overnight by RN
Able to tolerate diet without issue
Patient stated of walking to bathroom without further problem
Objective Data
-
Labs:
Laboratory Results
05/03/25
04:22
WBC 6.1
Hgb 13.2
Hct 39.8
Plt Count 166
Sodium 139
Potassium 3.4 L
Chloride 109 H
Carbon Dioxide 26
BUN 11
Creatinine 0.7
Glucose 103 H
Calcium 8.5
Vital Signs:
Vital Signs
Temp Pulse Resp BP Pulse Ox
97.6 F 56 16 159/83 98
05/03/25 07:10 05/03/25 07:10 05/03/25 07:10 05/03/25 07:10 05/03/25 07:10
I&O
05/02/25 05/03/25 05/04/25
06:59 06:59 06:59
Intake Total 960 / 960 1919
Balance 960 / 960 1919
Review of Systems
-
Respiratory: Reports No Symptoms
Cardiac: Reports No Symptoms
Abdomen/GI: Reports No Symptoms
Physical Exam
-
General: Negative No Apparent Distress
HEENT: Negative Oxygen
GI: Soft, Nontender and Nondistended
Neuro: Awake, Alert and No Motor Deficits
[2025-05-03 15:06] VITALS: BP 147/78
[2025-05-03 16:57] VITALS: BP 127/77; BP 135/83; BP 140/81; PULSE 66; PULSE 73; PULSE 82
[2025-05-03] MEDS: LIPITOR 40 MG PO (17:23)
[2025-05-03] MEDS: DELTASONE 40 MG PO (17:23)
[2025-05-03] MEDS: ARICEPT 20 MG PO (20:59)
[2025-05-03 23:00] VITALS: BP 125/74
[2025-05-04 07:20] VITALS: BP 127/89; BP 136/88; BP 137/71; PULSE 74; PULSE 76; PULSE 89
--- NOTE | 2025-05-04 07:23 | W.PN.HOSP.TC ---
Today's Communication/Plan
-
Discharge today
Assessment / Plan
Assessment / Plan
Physical Exam
General: Negative No Apparent Distress
HEENT: Negative Oxygen
GI: Soft, Nontender and Nondistended
Neuro: Awake, Alert, Oriented and No Motor Deficits
Assessment/Plan
1. Intractable vertigo
- Presumed BPPV based on exam although patient not able to tolerate Luna maneuver
- Discussed with PT/OT who is concerned about possible vertebral insufficiency as well
- CT head did not show any acute abnormality
- MRI brain without contrast and MRA neck did not show any acute issues.
- Continue as needed meclizine for now
- Repeat PT evaluation-patient does well can be discharged home with symptomatic care and outpatient vestibular therapy follow-up
- On discharge, continue Prednisone 40 mg daily for 3 more days
2. Nausea/vomiting - RESOLVED
- From vertigo, continue symptomatic care
3. Memory problems
- Maintain on home dose of memantine/donepezil
4. Generalized anxiety disorder
- Family stated of patient being on benzos, PDMP reviewed and patient never been prescribed benzodiazepine
- Providing Xanax as needed for anxiety, will adjust dosage based on response
- Continue home dose of BuSpar/Lexapro
5. Essential hypertension
- Maintain on valsartan 40 mg daily
6. Hyperlipidemia
- Continue on Lipitor 40 mg every afternoon
7. History of pulmonary embolism
- Maintain on Eliquis therapy
DVT prophylaxis -Eliquis
Full code
More than 30 minutes spent in discharge including
Final examination of the patient
Summarizing hospital stay
Instructions for continuing care to all relevant caregivers
Preparation of discharge records, prescriptions, and referral forms
Total time spent (in minutes): 35
Anticipated Discharge: Today
Subjective/Interval History
-
Date of Service: May 04, 2025
Patient was seen and examined. She reported that her dizziness essentially resolved, and that she would like to go home today.
Objective Data
-
Labs:
Laboratory Results
05/04/25
06:39
WBC Pending
Hgb Pending
Hct Pending
Plt Count Pending
Sodium Pending
Potassium Pending
Chloride Pending
Carbon Dioxide Pending
BUN Pending
Creatinine Pending
Glucose Pending
Calcium Pending
Vital Signs:
Vital Signs
Temp Pulse Resp BP Pulse Ox
97.5 F 76 18 136/88 96
05/04/25 07:20 05/04/25 07:20 05/04/25 07:20 05/04/25 07:20 05/04/25 07:20
I&O
05/03/25 05/04/25 05/05/25
06:59 06:59 06:59
Intake Total 1919 960 / 960
Balance 1919 960 / 960
[2025-05-04 07:30] LABS: Hematocrit 43.1 % (37.0-47.0); Hemoglobin 14.9 g/dL (12.0-16.0); Mean Corp Hgb Conc. 34.6 g/dL (33.0-37.0); Mean Corpuscular Volume 91.9 fL (81.0-99.0); Platelet Count 197 10^3/uL (130-400); Red Cell Dist. Width 12.9 % (11.5-14.5)
[2025-05-04 07:52] LABS: Blood Urea Nitrogen 16 mg/dl (7-17); Calcium 9.5 mg/dl (8.4-10.2); Carbon Dioxide 25 mmol/L (22-30); Chloride 105 mmol/L (98-107); Estimated Creatinine Clearance 45 ml/min; Glucose 128 mg/dl (70-99); Potassium 3.8 mmol/L (3.5-5.1); Sodium 139 mmol/L (135-145); eGFR > 60.00
[2025-05-04] MEDS: ANTIVERT 12.5 MG PO ×2 (07:56→15:48)
[2025-05-04] MEDS: DELTASONE 40 MG PO (08:03)
[2025-05-04] MEDS: DIOVAN 40 MG PO (08:03)
[2025-05-04] MEDS: ELIQUIS 2.5 MG PO (08:04)
[2025-05-04] MEDS: LEXAPRO 20 MG PO (08:04)
[2025-05-04] MEDS: BUSPAR 10 MG PO (08:04)
[2025-05-04] MEDS: NAMENDA 5 MG PO (08:05)
[2025-05-04 15:22] VITALS: BP 155/75
--- NOTE | 2025-05-04 16:46 | W.DCSUMMARY ---
Discharge Summary
Discharge Data
Date of Admission: 05/01/25
Date of Discharge: 05/04/25
Total time spent discharging patient (in min): 35
-
Pending Results: No
Hospital Course
80-year-old female with past medical history of vascular dementia, prior CVAs, hypertension, hyperlipidemia, brain aneurysm, anxiety and pulmonary embolism on Eliquis, presented with multiple falls and weakness with lightheadedness worse with
ambulation associated with nausea and vomiting and double vision. Treated with UTI with Bactrim over the prior few days which she completed. Neuroimaging was unrevealing. Patient was thought to have peripheral vertigo. Physical therapy was ordered.
Patient was started on Prednisone for persistent dizziness. Patient's symptoms improved and she was stable for discharge with close outpatient follow-up.
Discharge Plan
-
Patient Disposition: Home (Routine Discharge)
Discharge Diagnosis/Procedures: BPPV/Vertigo
Rounded polyp or mucous retention cyst within the inferior right maxillary sinus, with transverse dimension of 2 cm -- on CT Head imaging, as per radiologist's report
Intractable vertigo
Nausea/vomiting - RESOLVED
Memory problems
Generalized anxiety disorder
Essential hypertension
Hyperlipidemia
History of pulmonary embolism

MRI Brain (as per radiologist's report):
'TECHNIQUE: 1.5 Pamela. Unenhanced MRI imaging of the brain was performed. Images were obtained in multiple planes using a variety of pulse sequences including T1 weighting, T2 weighting, FLAIR, and diffusion-weighted imaging.
COMPARISON: CT head dated 05/01/2025, MRI brain 06/23/2024
FINDINGS: Redemonstration of scattered cortical foci of susceptibility artifact most prominent in the right parietal and occipital lobes, overall slightly progressed from prior and most in keeping with chronic microhemorrhages.
Axial FLAIR sequence demonstrates stable mild to moderate hyperintensity within the periventricular and deep subcortical white matter, likely related to chronic small vessel ischemic changes.
No new suspicious abnormal parenchymal signal intensity, mass effect, midline shift, or extra-axial collection. No hydrocephalus. No abnormal signal on diffusion imaging to suggest acute infarct.
The bilateral cerebellopontine angles appear intact. The visualized portions of the 5th, 7th and 8th cranial nerves appear grossly intact.
Moderate right maxillary sinus mucosal thickening/mucous retention cyst.
The vascular structures at the skull base are unremarkable.'

MRA Imaging of the Neck (as per radiologist's report):
'Technical: This examination was performed on a 1.5 Pamela unit. The following sequences were performed: Axial 2-D and 3-D [id number]. Postcontrast images obtained. Three-dimensional reconstructions were performed. NASCET criteria was utilized
during interpretation of internal carotid artery stenosis.
Comparison: MRI brain neck 06/19/2023
Findings:
Evaluation is slightly limited due to patient involuntary motion artifact.
The vertebral arteries appear intact with dominant right-sided. The basilar artery is intact.
The common carotid arteries appear intact.
The right carotid bifurcation is intact. The visualized right internal carotid artery is normal.
The left carotid bifurcation is intact. The visualized left internal carotid artery is normal.
Anterior circulation (Partially visualized): Limited evaluation due to motion artifact. No high-grade occlusions.
Posterior circulation (Partially visualized): Limited evaluation due to motion artifact. No high-grade occlusions.
IMPRESSION:
This examination demonstrates no focal hemodynamically significant stenosis, aneurysm or occlusion.'
Condition: Good
Diet: As tolerated, Low Fat and Low Cholesterol
Activity: Other activity
Additional Activity: Until you see and discuss with your primary care provider, please do not perform any activity that would put you (or others around you) at risk of harm, in the case that you were to lose control while doing that activity.
Driving Restrictions: Not until seen by your Dr
Bathing Restrictions: OK to Shower
Referrals:
Clemencia Puga DO [Family Provider, Family Practice] - in less than 1 week
Referral Note: Hospitalization Follow-Up
Prescriptions:
New
prednisone 20 mg Tablet
40 mg PO DAILY Qty: 6 0RF
Rx Instructions:
1st dose should be on 05/05/25.
Continued
atorvastatin [Lipitor] 40 mg Tablet
40 mg PO QPM
buspirone 10 mg Tablet
10 mg PO BID
escitalopram oxalate [Lexapro] 20 mg Tablet
20 mg PO DAILY
valsartan 40 mg Tablet
40 mg PO DAILY
Eliquis 2.5 mg Tablet
2.5 mg PO BID
memantine 14 mg Capsule,Sprinkle,Er 24hr
14 mg PO DAILY
donepezil 10 mg tablet
20 mg PO HS
Discharge Orders:
Discharge Patient (As Directed); Ordered 05/04/25
Ordered By: Won Santo
Discharge Date and Time
Discharge Date/Time: 05/04/25 19:25
Print Language: YORUBA
--- NOTE | 2025-05-04 16:51 | CM ---
Pt cleared for discharge to home with outpatient vestibular rehab services.
No other needs identified at this time.
[2025-05-04] MEDS: LIPITOR 40 MG PO (17:16)
[2025-05-04 19:04] VITALS: BP 149/76
== END 2025-05-04 19:25 | disposition home or self-care (01) | DRG 149 ==
LOC: 3 WEST ACU 17:09
PROVIDERS: Hospitalist; Student in an Organized Health Care Education/Training Program; ADMITTING PHYSICIAN Hospitalist; ATTENDING PHYSICIAN Hospitalist; EMERGENCY PHYSICIAN Student in an Organized Health Care Education/Training Program; FAMILY PHYSICIAN Internal Medicine
DX: H81.10 Benign paroxysmal vertigo, unspecified ear (principal); F01.53 Vascular dementia, unspecified severity, with mood disturbance; F01.54 Vascular dementia, unspecified severity, with anxiety; N39.0 Urinary tract infection, site not specified; F32.A Depression, unspecified; I10 Essential (primary) hypertension; G47.33 Obstructive sleep apnea (adult) (pediatric); J34.1 Cyst and mucocele of nose and nasal sinus; R29.6 Repeated falls; I67.1 Cerebral aneurysm, nonruptured; K62.89 Other specified diseases of anus and rectum; E78.5 Hyperlipidemia, unspecified; F41.1 Generalized anxiety disorder; Z60.2 Problems related to living alone; Z90.710 Acquired absence of both cervix and uterus; Z87.891 Personal history of nicotine dependence; Z87.440 Personal history of urinary (tract) infections; Z79.01 Long term (current) use of anticoagulants; Z88.5 Allergy status to narcotic agent; Z88.2 Allergy status to sulfonamides; Z88.8 Allergy status to other drugs, medicaments and biological substances; Z86.73 Personal history of transient ischemic attack (TIA), and cerebral infarction without residual deficits; Z86.711 Personal history of pulmonary embolism
CPT/HCPCS: 70450; 70548; 70551; 80048; 80053; 81003; 83690; 83735; 85025; 85027; 93005; 96361; 96374; 96375; 97112; 97116; 99285; A9585